=== PATIENT | female | born 1945 | race Caucasian/White ===

== ENCOUNTER 2017-04-24 15:57 | Inpatient (IN) | payer OTHER, MEDICARE ==
[2017-04-24] MEDS ORDERED: Ondansetron ODT 4 MG TAB SL PRN (20:29)
[2017-04-24] MEDS ORDERED: Ondansetron HCl/PF 4 MG/2 ML Vial IVP PRN (20:29)
[2017-04-24] MEDS ORDERED: Morphine 2 mg/2ml in 0.9% NaCl PF SYRINGE SLOW IVP PRN ×2 (20:31→22:46)
[2017-04-24] MEDS ORDERED: Morphine 4 MG/ML VIAL SLOW IVP PRN ×3 (20:33→22:37)
[2017-04-24] MEDS: Sodium Chloride 0.9% 1,000 ML IV SCH (20:49)
[2017-04-24] MEDS ORDERED: Meropenem 1 GM in Sodium Chloride 0.9% 100 ML IVPB SCH (21:00)
[2017-04-24] MEDS ORDERED: MEROPENEM 1 GM/50 ML 1 GM in Premix Bag 1 BAG IVPB SCH (21:00)
[2017-04-24] MEDS ORDERED: PROVENTIL INHALER 6.7 G (200 INHALATIONS) INH PRN (21:15)
[2017-04-24 21:40] VITALS: BMI 32.5
[2017-04-24] MEDS ORDERED: Piperacillin/Tazobactam 4.5 GM in Sodium Chloride 0.9% 100 ML IVPB SCH ×4 (23:59)
--- NOTE | 2017-04-25 00:05 | HP ---
CHIEF COMPLAINT: Abdominal pain. HISTORY OF PRESENT ILLNESS: Ms. Canales is a 71-year-old woman, who presented to the [place] ER w ith a 1-week history of lower abdominal pain, growing much worse for the past 24 hours. She was foun d to have diverticulitis with contained perforation and was transferred to [place] for further car e. She states that she started feeling sick about a week ago with some crampy abdominal pain in the mid abdomen. She went to her primary care doctor and was diagnosed with an upper respiratory infecti on and was started on cefdinir, but continued to have the abdominal pain off and on. About a week ag o, it moved into the lower abdomen and became a little more severe, but it was intermittent and arlet able, so she ignored that. On Tuesday, she had some loose bowel movements and the pain became more in tense and it steadily increased in severity over the weekend. Today, she decided to come into the em ergency room because the pain has become intolerable. She states that it was most severe pain she robertson s ever had and that it radiated across her lower abdomen and down into the anal area. She has not robertson d a bowel movement today, but is passing gas. She states that her stools have been loose and sort of mucousy, she has not noticed any blood. She has never had a colonoscopy, but she has an fecal occul t blood testing and that was negative last year. She has no personal or family history of GI maligna ncy and is otherwise fairly healthy except for asthma and hypertension. PAST MEDICAL HISTORY: Asthma and hypertension. She recently underwent cardiac evaluation by Dr. Urmila taylor including a stress test, which she states was normal. PAST SURGICAL HISTORY: Laparoscopic cholecystectomy many years ago and repair of an elbow laceration . She has also had an upper endoscopy in the past by Dr. Orellana for some reflux. OUTPATIENT MEDICATIONS: Include cefdinir 300 mg p.o. t.i.d., Bentyl 1 tablet p.o. q.i.d., naproxen 5 00 mg p.o. as needed, Protonix 40 mg p.o. daily, albuterol inhaler as needed, Symbicort 80/4.5 mg inh aler 1 puff b.i.d., Flexeril 10 mg p.o. at bedtime and losartan/hydrochlorothiazide 100/12.5 mg p.o. daily. ALLERGIES: The patient reports an unknown reaction to PENICILLIN when she was very young, but she robertson s tolerated amoxicillin and also Zosyn which was given in the emergency room. REVIEW OF SYSTEMS: Positive for intermittent diarrhea and constipation, longstanding. She did have a fever up to 101.8 in [place], but this has come down prior to her transfer. She has not had a ny nausea or vomiting. Review of systems is otherwise negative. FAMILY HISTORY: Negative for GI malignancy. SOCIAL HISTORY: The patient has a distant history of smoking, but quit over 20 years ago. She drink s alcohol rarely on a social basis and not to excess and denies any illicit drug use. PHYSICAL EXAMINATION: VITAL SIGNS: The patient is afebrile with temperature of 98.3, heart rate of 96, respirations 18, 97 % saturated on room air, blood pressure 124/74. GENERAL: Reveals a healthy appearing woman, in no acute distress. She is not flushed or toxic in ap pearance. She is not jaundiced or icteric. HEENT: Unremarkable. NECK: Supple, without lymphadenopathy or thyroid nodules. CARDIOVASCULAR: Her heart is regular in its rate and rhythm without murmurs, rubs or gallop. LUNGS: Clear to auscultation bilaterally. She does not have any pain with deep inspiration. ABDOMEN: Soft, slightly distended. She has mild tenderness to palpation in the lower abdomen, more than the upper abdomen, does not exhibit any rigidity, rebound or guarding. EXTREMITIES: Warm and well perfused without edema. NEUROLOGIC: No focal deficits. PSYCHIATRIC: Alert, oriented, and appropriate. LABORATORY DATA: Her white count is elevated at 16 with a left shift of 87% neutrophils. Hematocrit is normal at 43 and platelets are 240. Electrolytes are unremarkable. BUN is slightly elevated at 21 and creatinine is 0.67. UA did show few ketones. CT images from [place] are reviewed and I agree with the written report. The patient has fairly severe diverticulitis in the sigmoid colon wit h stranding and some extraluminal foci of gas in the mesentery of the sigmoid colon. There is no def inite abscess formation and no free perforation and this appears to be contained within the mesentery . ASSESSMENT AND PLAN: Diverticulitis. The patient's pain is much better after receiving IV antibioti cs and pain medication and she is not toxic in appearance. Her abdominal exam is reassuring and clin ically she is stable. We will proceed with a trial of medical treatment. If she responds to this, wade boyer will plan to get an outpatient colonoscopy in a couple of months. If her condition worsens then rosas torsten will need to be considered. The patient's diagnosis and recommended treatment were discussed w jaime her in detail and the plan of care reviewed. She is in agreement with this and we will continue her antibiotics as an inpatient. The ER doctor switched her from Zosyn to meropenem due to her previ ously stated allergy to PENICILLIN; however, I do not believe she is allergic to PENICILLIN since she has tolerated Zosyn previously in the [place] ER and also amoxicillin as an outpatient when she was treated for H. pylori a couple years ago. However, since she has already been switched to merop enem and recently received a dose, I will continue her on that antibiotic.
[2017-04-25] MEDS: Acetaminophen 1,000 MG in Premix Bag 1 BAG IVPB PRN ×3 (00:40→14:58)
[2017-04-25] MEDS: MEROPENEM 1 GM/50 ML 1 GM in Premix Bag 1 BAG IVPB SCH ×3 (04:54→20:09)
[2017-04-25] MEDS: Sodium Chloride 0.9% 1,000 ML IV SCH (04:56)
[2017-04-25] MEDS: Hydrochlorothiazide 25 MG TAB PO SCH (06:23)
[2017-04-25] MEDS: Losartan Potassium 25 MG TAB PO SCH (06:23)
[2017-04-25] MEDS: Mometasone/Formoterol 120 PUFF INHALER INH SCH ×2 (07:09→20:20)
[2017-04-25 10:52] LABS: #Eosinphils 0.1 thou/uL (0.0-0.7); #Lymphocytes 1.2 thou/uL (1.20-3.40); #Monocytes 1.2 thou/uL (0.11-0.59); #Neutrophils 12.5 thou/uL (1.40-6.50); %Basophils 0.2 % (0.0-1.0); %Eosinophils 0.4 % (0.0-10.0); %Lymphocytes 7.9 % (21.0-51.0); Hematocrit 39.6 % (36.0-47.0); Mean Platelet Volume 7.3 fL (7.4-10.4); Red Blood Cell (RBC) Count 4.28 mill/uL (4.20-5.40); White Blood Cell (WBC) Count 14.9 thou/uL (4.8-10.8)
[2017-04-25 11:14] LABS: Anion Gap 8 mmol/L (10-20); BUN (Urea Nitrogen) 15 mg/dL (9.8-20.1); Calc. Creatinine Clearance 110 mL/min (70-130); Calcium 8.8 mg/dL (7.8-10.44); Carbon Dioxide 26 mmol/L (23-31); Chloride 108 mmol/L (98-107); Estimated GFR-MDRD Greater than 90
[2017-04-25] MEDS: Ketorolac Tromethamine 30 MG/ML VIAL IVP PRN (14:58)
[2017-04-25] MEDS: Cyclobenzaprine 10 MG TAB PO SCH (20:09)
[2017-04-26] MEDS: Ketorolac Tromethamine 30 MG/ML VIAL IVP PRN ×2 (01:35→09:11)
[2017-04-26] MEDS: Acetaminophen 325 MG TAB PO PRN ×3 (04:57→23:46)
[2017-04-26] MEDS: MEROPENEM 1 GM/50 ML 1 GM in Premix Bag 1 BAG IVPB SCH ×2 (04:58→13:48)
[2017-04-26 06:10] LABS: #Eosinphils 0.2 thou/uL (0.0-0.7); #Lymphocytes 1.3 thou/uL (1.20-3.40); #Neutrophils 10.5 thou/uL (1.40-6.50); %Basophils 0.1 % (0.0-1.0); %Eosinophils 1.5 % (0.0-10.0); %Monocytes 7.6 % (0.0-10.0); Hematocrit 36.7 % (36.0-47.0); Mean Platelet Volume 7.8 fL (7.4-10.4); Red Blood Cell (RBC) Count 3.98 mill/uL (4.20-5.40)
[2017-04-26 06:21] LABS: Anion Gap 9 mmol/L (10-20); BUN (Urea Nitrogen) 13 mg/dL (9.8-20.1); Calc. Creatinine Clearance 103 mL/min (70-130); Calcium 8.7 mg/dL (7.8-10.44); Carbon Dioxide 27 mmol/L (23-31); Chloride 108 mmol/L (98-107); Estimated GFR-MDRD Greater than 90
[2017-04-26] MEDS: Mometasone/Formoterol 120 PUFF INHALER INH SCH ×2 (07:34→18:45)
[2017-04-26] MEDS: Hydrochlorothiazide 25 MG TAB PO SCH (12:25)
[2017-04-26] MEDS: Losartan Potassium 25 MG TAB PO SCH (12:25)
[2017-04-26] MEDS: metroNIDAZOLE 500 MG TAB PO SCH ×2 (17:40→23:44)
[2017-04-26] MEDS ORDERED: metroNIDAZOLE 500 MG in Premix Bag 1 BAG IVPB SCH (18:00)
[2017-04-26] MEDS ORDERED: Clopidogrel Bisulfate 75 MG TAB ONE (19:52)
[2017-04-26] MEDS: Cyclobenzaprine 10 MG TAB PO SCH (19:59)
[2017-04-26] MEDS ORDERED: Latanoprost 0.005% Ophth Soln 2.5 ml Bottle EA EYE SCH (21:00)
[2017-04-27] MEDS: metroNIDAZOLE 500 MG TAB PO SCH ×2 (05:00→12:16)
[2017-04-27] MEDS: Ketorolac Tromethamine 30 MG/ML VIAL IVP PRN (05:05)
[2017-04-27 05:41] LABS: #Eosinphils 0.3 thou/uL (0.0-0.7); #Lymphocytes 1.3 thou/uL (1.20-3.40); #Neutrophils 7.9 thou/uL (1.40-6.50); %Basophils 0.4 % (0.0-1.0); %Eosinophils 2.7 % (0.0-10.0); %Lymphocytes 12.6 % (21.0-51.0); %Monocytes 9.6 % (0.0-10.0); Hematocrit 38.3 % (36.0-47.0); Mean Platelet Volume 7.6 fL (7.4-10.4); Red Blood Cell (RBC) Count 4.15 mill/uL (4.20-5.40); White Blood Cell (WBC) Count 10.6 thou/uL (4.8-10.8)
[2017-04-27 05:51] LABS: Anion Gap 8 mmol/L (10-20); BUN (Urea Nitrogen) 9 mg/dL (9.8-20.1); Calc. Creatinine Clearance 97 mL/min (70-130); Calcium 9.1 mg/dL (7.8-10.44); Carbon Dioxide 33 mmol/L (23-31); Chloride 105 mmol/L (98-107); Estimated GFR-MDRD 85
[2017-04-27] MEDS: Losartan Potassium 25 MG TAB PO SCH (07:54)
[2017-04-27] MEDS: Hydrochlorothiazide 25 MG TAB PO SCH (07:55)
[2017-04-27] MEDS ORDERED: Potassium Chloride 20 MEQ TAB PO SCH (11:00)
[2017-04-27 12:33] VITALS: BP 134/74; TEMP 97.6
[2017-04-27] MEDS: Mometasone/Formoterol 120 PUFF INHALER INH SCH (13:56)
--- NOTE | 2017-04-27 17:15 | DIS ---
FINAL DIAGNOSES: 1. Diverticulitis. 2. Asthma. 3. Glaucoma. 4. Hypertension. HISTORY: Ms. Canales is a 71-year-old woman who presented to the emergency room with a 1-2 week histor y of abdominal pain. She was on some antibiotic for an upper respiratory infection, but the abdomina l pain became significantly worse over the weekend, so she ended up coming into the hospital. She robertson d been having some diarrhea and mucusy stools and the pain was localized to her lower abdomen. On CT , she was found to have diverticulitis with some small localized bubbles of gas in the fatty tissue s urrounding the inflamed portion of the colon, but no free perforation and no drainable abscess. She was admitted for IV antibiotics and had rapid improvement in her pain. She did not require any IV pa in medications after beginning her antibiotics and her abdominal tenderness also rapidly diminished. Her diet was able to be advanced and she was transitioned to p.o. antibiotics and continued to do we ll. At the time of discharge, her infection count had returned to normal. She had very slight tende rness to palpation in the suprapubic area. She was afebrile and having loose but not mucousy bowel m ovements. She is to continue on her oral medications for 10 days and to return [facility] in 2 weeks. If she has any increasing abdominal pain, fevers, nausea, or other problems, e is to return immediately.
== END 2017-04-27 13:39 | disposition home or self-care (01) | DRG 392 ==
LOC: ERS 15:57 → SURG A 17:00
PROVIDERS: ADMIT Surgery; ATTEND Surgery
DX: K57.32 Diverticulitis of large intestine without perforation or abscess without bleeding (principal); I10 Essential (primary) hypertension; J45.909 Unspecified asthma, uncomplicated; Z90.49 Acquired absence of other specified parts of digestive tract; Z87.891 Personal history of nicotine dependence; Z88.0 Allergy status to penicillin; H40.9 Unspecified glaucoma
CPT/HCPCS: 36415; 80048; 85025; 99285; J0131; J1885; J2185; J2270; J2405; J7050

== ENCOUNTER 2018-03-19 11:39 | Inpatient (IN) | payer OTHER, MEDICARE ==
[2018-03-19 12:32] LABS: #Eosinphils 0.1 thou/uL (0.0-0.7); #Lymphocytes 1.1 thou/uL (1.20-3.40); #Monocytes 0.9 thou/uL (0.11-0.59); #Neutrophils 12.3 thou/uL (1.40-6.50); %Basophils 0.2 % (0.0-1.0); %Eosinophils 0.9 % (0.0-10.0); %Lymphocytes 7.8 % (21.0-51.0); %Monocytes 6.1 % (0.0-10.0); Mean Corpuscular HGB CONC 32.3 g/dL (32.0-36.0); Mean Corpuscular Hemoglobin 29.1 pg (27.0-31.0); Mean Corpuscular Volume 90.1 fL (78.0-98.0); Mean Platelet Volume 7.8 fL (7.4-10.4); Platelet Count 313 thou/uL (130-400); RBC Distribution Width 12.3 % (11.5-14.5); Red Blood Cell (RBC) Count 5.17 mill/uL (4.20-5.40); White Blood Cell (WBC) Count 14.5 thou/uL (4.8-10.8)
[2018-03-19 12:45] LABS: ALT (SGPT) 18 U/L (8-55); AST (SGOT) 18 U/L (5-34); Albumin 4.2 g/dL (3.4-4.8); Alkaline Phosphatase 86 U/L (40-150); Anion Gap 13 mmol/L (10-20); BUN (Urea Nitrogen) 20 mg/dL (9.8-20.1); Bilirubin, Total 0.7 mg/dL (0.2-1.2); Calc. Creatinine Clearance 0 mL/min (70-130); Calcium 9.6 mg/dL (7.8-10.44); Carbon Dioxide 28 mmol/L (23-31); Chloride 102 mmol/L (98-107); Estimated GFR-MDRD 75; Glucose 109 mg/dL (83-110); Lipase 13 U/L (8-78); Potassium 3.4 mmol/L (3.5-5.1); Protein, Total 7.2 g/dL (6.0-8.3); Sodium 140 mmol/L (136-145)
[2018-03-19 13:00] LABS: Bilirubin Small (Negative); Blood, Urine Negative (Negative); Clarity CLOUDY (Clear); Glucose, Urine (Dipstick) Negative (Negative); Leukocyte Small (Negative); Nitrite Negative (Negative); Protein, Urine (Dipstick) Trace mg/dL (Neg-Trace); Specific Gravity, Urine 1.024 (1.002-1.036); Urobilinogen 0.2 mg/dL (0.2-1.0); pH, Urine 5.5 (5.0-9.0)
[2018-03-19] MEDS ORDERED: MEROPENEM 1 GM/50 ML 1 GM in Premix Bag 1 BAG IVPB SCH (13:00)
[2018-03-19 13:04] LABS: Bacteria/HPF None Seen HPF (None Seen); Pathc Cast-AUWi Flag 2.03 (0-2.49); Squamous Epithelial 0-3 HPF (0-3)
[2018-03-19 13:20] LABS: Hyaline Casts/LPF 0-3 HYALINE CAST LPF (0-3 Hyaline)
[2018-03-19] MEDS ORDERED: Ondansetron PF 4 MG/2 ML Vial ONE (13:20)
[2018-03-19] MEDS ORDERED: Morphine 2 MG/ML SYRINGE ONE ×3 (13:20→14:06)
[2018-03-19] MEDS ORDERED: Iopamidol 370 76% 100 ML VIAL ONE (14:26)
--- NOTE | 2018-03-19 14:39 | CT ---
CT OF ABDOMEN AND PELVIS PERFORMED WITH CONTRAST ENHANCEMENT:' HISTORY: Abdominal pain beginning approximately 3 week ago which was felt to be diverticulitis for which the p atient was given antibiotics. The pain had resolved but not has left-sided abdomen pain again. COMPARISON: A 04/24/2017 study. FINDINGS: The lung bases clear. The liver, spleen, and pancreas regions appear unremarkable. The gallbladder has been removed. Right and left adrenal glands and right and left kidneys are normal in size. There is no significant periaortic or mesenteric lymphadenopathy. There is what is probably a small splenule anterior to th e spleen. There is evidence of bowel wall thickening involving the ileum with some minimal fluid wit hin the ileal bowel loops associated with this and some free fluid seen in the pelvis and also some e bryon change seen within the mesenteric fat. This extends to the terminal ileum. There is some fluid within the cecum, but no obvious signs that would suggest a colitis. CT OF PELVIS PEFORMED WITH CONTRAST ENHANCEMENT: Sigmoid diverticulosis was seen without any inflammatory change. IMPRESSION: 1. Small bowel wall thickening and edema with some fluid seen in the mesenteric fat and free fluid s een in the pelvis. These changes could represent a severe ileus, but the possibility of bowel wall i schemic should be considered. I do see a patent superior mesenteric and celiac artery and do not see any definite evidence that would suggest vascular compromise. An inferior mesenteric artery is not identified. 2. Diverticulosis of the sigmoid colon without inflammatory change. 2. These findings were telephoned to Dr. Woodson. POS: [facility]
[2018-03-19] MEDS ORDERED: Acetaminophen 650 MG Suppository PR PRN (15:25)
--- NOTE | 2018-03-19 16:11 | HP ---
PRIMARY CARE PROVIDER: Jarocho Katz M.D. CHIEF COMPLAINT: Abdominal pain. HISTORY OF PRESENT ILLNESS: Ms. Canales is a pleasant 72-year-old lady, who was seen at [facility] on 03/19/2018. She reports that she had abdominal pain. This was preceded by 3 days of diarrhea. She describes the pain as cramping sensation across her upper abdomen. She was se en by her primary care provider and was treated with ciprofloxacin and Flagyl for 10 days. The diarr hea resolved. Last night, she had pain across upper abdomen, then across the lower abdomen. She donald cribes it as sharp, 10/10 at its worst, accompanied by nausea, but not by vomiting, accompanied by lo ose stools. She denies any fevers or chills. REVIEW OF SYSTEMS: All other systems reviewed and found to be negative. PAST MEDICAL HISTORY: Hypertension, gastroesophageal reflux disease, and asthma. PAST SURGICAL HISTORY: Cholecystectomy and right elbow surgery. PSYCHIATRIC HISTORY: Anxiety. SOCIAL HISTORY: Occasional alcohol use, no tobacco use or recreational drug use. FAMILY HISTORY: No family history of coronary artery disease. ALLERGIES: PENICILLIN. CURRENT MEDICATIONS: Latanoprost eyedrops 1 drop to each eye daily, losartan/hydrochlorothiazide 100 /12.5 mg daily, and pantoprazole 40 mg daily. PHYSICAL EXAMINATION: GENERAL: On examination, Ms. Canales is awake and alert, not in acute distress. VITAL SIGNS: Blood pressure is 144/72, pulse 87, respiratory rate 16 and oxygen saturation 99% on ro om air. She is afebrile. EYES: No scleral icterus. No conjunctival pallor. ENT: Moist mucosal membranes, no oropharyngeal erythema or exudates. NECK: Supple, nontender, trachea is midline. RESPIRATORY: Accessory muscles of breathing are not active. Chest wall movements are symmetric bila terally. LUNGS: Clear to auscultation without wheeze, rhonchi or crepitations. ABDOMEN: Soft, nontender, bowel sounds are heard, no hepatomegaly, no splenomegaly. NEUROLOGIC: Cranial nerves II-XII intact. Deep tendon reflexes are 2+. MUSCULOSKELETAL: Power is 5/5 in all 4 extremities. SKIN: No rashes or subcutaneous nodules. LYMPHATIC: No cervical lymphadenopathy. PSYCHIATRIC: Normal mood, normal affect, patient is oriented to person, place, and time. LABORATORY DATA AND IMAGING DATA: Ms. Canales's labs and investigations were reviewed. She has leukoc ytosis with 14,500 white cells, of which 85% are neutrophils, normal hemoglobin, normal platelet coun t, decreased potassium of 3.4, otherwise unremarkable comprehensive metabolic profile, normal lipase, normal lactic acid and urinalysis positive for small amount of leukocyte esterase and bilirubin. Sh e also had CT scan of the abdomen and pelvis, which showed sigmoid diverticulosis without any inflamm atory change. She also had small bowel wall thickening and edema with some fluid seen in the mesente rolando fat and free fluid seen in the pelvis, representing severe ileus or possibly bowel wall ischemia. ASSESSMENT AND PLAN: Ms. Canales is a pleasant 72-year-old lady, who was seen at [facility] on 03/19/2018. Her problem list includes: 1. Abdominal pain: Could be secondary to ileus or bowel wall ischemia. The patient has been starte d on meropenem by emergency room physician, which I will continue for now. We will send off stool st udies for evidence of infection as well as any evidence of Clostridium difficile toxin, given her rec ent antibiotic therapy. 2. Hypertension: Appears to be stable. We will monitor vital signs and titrate antihypertensives a s needed. 3. Asthma: Stable. Gastroenterology Service is being consulted for opinion and help with management. Many thanks for allowing me to participate in your patient's care. Please feel free to contact me wi th any questions or concerns. LEVEL OF RISK: Moderate. LEVEL OF COMPLEXITY: Moderate.
[2018-03-19 16:25] VITALS: BMI 32.8
[2018-03-19] MEDS: NS 0.9% w/ 20 MEQ KCL 1,000 ML/1,000 ML BAG IV SCH (17:49)
[2018-03-19] MEDS ORDERED: PROVENTIL INHALER 6.7 G (200 INHALATIONS) INH PRN (18:54)
[2018-03-19] MEDS ORDERED: hydrALAZINE 20 MG/ML VIAL SLOW IVP PRN (18:55)
--- NOTE | 2018-03-19 19:32 | CON ---
DATE OF CONSULTATION: 03/19/2018 GI INPATIENT CONSULTATION NOTE REQUESTING PHYSICIAN: Dr. Dean. REASON FOR CONSULTATION: Abdominal pain and ileitis. HISTORY OF PRESENT ILLNESS: Sylvia Canales is a very pleasant 72-year-old woman. She was seen in past by my GI colleague, Dr. Lebron Orellana. She has a history of gastroesophageal reflux which is pablito rly well controlled on Protonix which she has been on for years. She had an EGD back in 2006, which showed a stricture in the upper esophagus dilated to 15 mm with good results. She has never had a co lonoscopy. She has no chronic gastrointestinal symptoms. Back in 04/2007, she had an episode of com plicated sigmoid diverticulitis with a microperforation. This was treated conservatively and nonoper atively with antibiotics and she did well with this and eventually recovered completely. She did wel l for most of this year. About 3 weeks ago, she had the onset of some pretty severe diarrhea and left-sided abdominal pain. S he saw her primary care provider and was treated with ciprofloxacin and Flagyl for 10 days, empirical ly for suspected recurrent diverticulitis. She finished that up about a week ago. She says that sym ptoms did seem to improve while on the antibiotics. She did well for most of this week. Then last n ight, she started having right-sided abdominal pain again. This was initially in the left lower quad rant and then radiated down to the lower abdomen, but now has become more generalized and worsening t his morning which prompted her presentation. She had four loose bowel movements this morning, which were nonbloody. She has been slightly nauseated, but not had any vomiting. Upon evaluation in the e mergency department, she was found to have a leukocytosis with WBC 14.5. Normal lipase and liver serg ts. CT of the abdomen and pelvis demonstrated thickening in the ileum with associated mesenteric khushboo ma and a small amount of fluid in the pelvis but no evidence of diverticulitis. She is admitted for further evaluation. She received meropenem in the emergency room and that is going to be continued. Stool studies have been ordered, but she has not had a bowel movement yet since arrival to the floor , so these have not been collected. There is no fever, really no other symptoms today. REVIEW OF SYSTEMS: Full review of systems including constitutional, head, eyes, ears, nose, throat, GI, , cardiovascular, respiratory, musculoskeletal, and neurologic systems is negative except as no marshall in the HPI. PAST MEDICAL HISTORY: 1. Upper esophageal stricture, dilated to [address] Orellana in 2006. 2. Gastroesophageal reflux disease, controlled on Protonix. 3. Hypertension. 4. Anxiety. 5. Asthma. 6. Cholecystectomy. 7. Elbow surgery. ALLERGIES: PENICILLIN. OUTPATIENT MEDICATIONS: Protonix 40 mg daily and losartan/hydrochlorothiazide. FAMILY HISTORY: Noncontributory. There is no known family history of gastrointestinal illness or ma lignancy. SOCIAL HISTORY: No smoking, no drug use. Occasional alcohol use. PHYSICAL EXAMINATION: VITAL SIGNS: Temperature 97.8, pulse 83, blood pressure 133/76, 94% oxygen saturation on room air. GENERAL: A 72-year-old woman lying in bed comfortably in no distress. SKIN: No jaundice, no rash visible or palpable. EYES: No scleral icterus. Extraocular movements intact. ENT: Mucous membranes moist, no oral lesions. LYMPH: No submandibular or supraclavicular lymphadenopathy. THYROID: Nontender to palpation. HEART: Regular rate and rhythm. LUNGS: Clear to auscultation bilaterally. ABDOMEN: Nondistended. Bowel sounds are present. The abdomen is soft, but tender to palpation in t he left upper and lower quadrants and periumbilical area. No guarding, rebound tenderness. EXTREMITIES: No peripheral edema. VESSELS: Radial pulses 2+ bilaterally. NEUROLOGICAL: Cranial nerves II-XII intact bilaterally. No focal deficits. LABORATORY STUDIES: WBC 14.5, hemoglobin 15.0, platelets 313, BUN 20, creatinine 0.76. Lactic acid 1.5, lipase 13, total bilirubin 0.7, alkaline phosphatase 86, AST 18, ALT 18, albumin 4.2. Stool prosper dies have been ordered, but not yet collected. IMAGING STUDIES: CT of the abdomen and pelvis demonstrates sigmoid diverticulosis, but no evidence o f diverticulitis. There is thickening in the ileum extending to the terminal ileum with associated m esenteric edema and small amount of free fluid in the pelvis. ASSESSMENT AND PLAN: 1. Ileitis, nonspecific. 2. Generalized abdominal pain. 3. Acute diarrhea. It is unclear whether the patient's current symptoms are related to the same pro cess that she was treated for 3 weeks ago. Certainly there is no evidence of recurrent diverticuliti s at this time, but rather inflammation in the ileum. Consider infectious versus inflammatory ileiti s. At this point, I would await stool study results, particularly need to exclude Campylobacter or C . difficile. Follow up stool study results tomorrow. If stool studies are unrevealing and symptoms persist, then the patient is going to need a diagnostic colonoscopy. I would have the patient on a c lear liquid diet tomorrow. Thank you for the consultation. Please call any time with questions or concerns.
[2018-03-19] MEDS: Latanoprost 0.005% Ophth Soln 2.5 ml Bottle EA EYE SCH (20:27)
[2018-03-19] MEDS ORDERED: Non-Formulary Item 1 EACH (Budesonide-Formoterol [Symbicort 80-4.5] 1 PUFF) INH SCH (21:00)
[2018-03-19] MEDS: MEROPENEM 1 GM/50 ML 1 GM in Premix Bag 1 BAG IVPB SCH (22:12)
[2018-03-19] MEDS: Acetaminophen 325 MG TAB PO PRN (22:20)
[2018-03-19] MEDS: Morphine 2 MG/ML SYRINGE SLOW IVP PRN (22:21)
[2018-03-19] MEDS ORDERED: Ondansetron ODT 4 MG TAB PO PRN (22:29)
[2018-03-20] MEDS ORDERED: diphenhydrAMINE 25 MG CAP PO PRN (04:59)
[2018-03-20 05:14] LABS: #Eosinphils 0.5 thou/uL (0.0-0.7); #Lymphocytes 1.4 thou/uL (1.20-3.40); #Monocytes 0.8 thou/uL (0.11-0.59); #Neutrophils 6.7 thou/uL (1.40-6.50); %Basophils 0.3 % (0.0-1.0); %Eosinophils 5.8 % (0.0-10.0); %Lymphocytes 14.9 % (21.0-51.0); %Monocytes 8.4 % (0.0-10.0); %Neutrophils 70.7 % (42.0-75.0); Hemoglobin 12.8 g/dL (12.0-16.0); Mean Corpuscular HGB CONC 31.2 g/dL (32.0-36.0); Mean Corpuscular Hemoglobin 28.4 pg (27.0-31.0); Mean Corpuscular Volume 90.9 fL (78.0-98.0); Mean Platelet Volume 8.2 fL (7.4-10.4); Platelet Count 272 thou/uL (130-400); RBC Distribution Width 12.2 % (11.5-14.5); Red Blood Cell (RBC) Count 4.51 mill/uL (4.20-5.40); White Blood Cell (WBC) Count 9.4 thou/uL (4.8-10.8)
[2018-03-20 05:23] LABS: Anion Gap 6 mmol/L (10-20); BUN (Urea Nitrogen) 16 mg/dL (9.8-20.1); Calc. Creatinine Clearance 99 mL/min (70-130); Calcium 8.7 mg/dL (7.8-10.44); Carbon Dioxide 31 mmol/L (23-31); Chloride 107 mmol/L (98-107); Estimated GFR-MDRD 88; Glucose 96 mg/dL (83-110); Sodium 140 mmol/L (136-145)
[2018-03-20] MEDS: MEROPENEM 1 GM/50 ML 1 GM in Premix Bag 1 BAG IVPB SCH ×3 (05:23→20:59)
[2018-03-20] MEDS: NS 0.9% w/ 20 MEQ KCL 1,000 ML/1,000 ML BAG IV SCH ×2 (05:23→20:52)
[2018-03-20] MEDS: Mometasone/Formoterol 120 PUFF INHALER INH SCH ×2 (06:16→20:07)
[2018-03-20] MEDS ORDERED: HYDROCHLOROTHIAZIDE PO SCH (07:30)
[2018-03-20] MEDS ORDERED: LOSARTAN PO SCH (07:30)
[2018-03-20] MEDS: Losartan 25 MG TAB PO SCH (08:07)
[2018-03-20] MEDS: Acetaminophen 325 MG TAB PO PRN ×2 (08:07→21:08)
[2018-03-20] MEDS: Hydrochlorothiazide 25 MG TAB PO SCH (08:08)
[2018-03-20] MEDS: Ondansetron PF 4 MG/2 ML Vial IVP PRN (12:22)
[2018-03-20] MEDS: Morphine 2 MG/ML SYRINGE SLOW IVP PRN (12:22)
--- NOTE | 2018-03-20 14:00 | PRG ---
DATE OF SERVICE: 03/20/2018 SUBJECTIVE: The patient reports having intermittent, diffuse abdominal cramps, at times intense. Th ere is no nausea or vomiting. She still has loose to watery diarrhea without blood or mucus, so far 3 episodes within the last 10 hours. She is tolerating liquids. PHYSICAL EXAMINATION: VITAL SIGNS: Temperature is 98.3, blood pressure 125/75, pulse of 73. GENERAL: She is alert, conversant, in no distress. HEENT: Shows anicteric sclerae. Oropharynx clear. NECK: Supple. HEART: Normal S1, S2 regular rate and rhythm. CHEST: Normal breath sounds. ABDOMEN: Mildly distended with some tympany. There is tenderness in the periumbilical area, but no guarding, tension or rebound. She does have active bowel sounds. EXTREMITIES: Shows no edema. LABORATORY DATA: WBC is 9.4, hemoglobin 12.8, platelet count of 272. Electrolytes within normal ran ge, creatinine 0.66, BUN of 16. Stool for Campylobacter and E. coli, toxin negative and stool C. diff negative, culture pending. ASSESSMENT: A 3-week history of diarrhea without blood or mucus associated with abdominal pain. CT showed possible ileitis. Thus far, stool studies have been negative. She does not appear toxic, wit hout fever and leukocytosis is resolving. Etiology is unknown at this point. Likely infectious vers us inflammatory process. RECOMMENDATIONS: 1. Proceed with a colonoscopy given negative stool studies so far. 2. Indication including risks of this procedure are discussed with patient, all questions answered.
--- NOTE | 2018-03-20 15:13 | PDOC.PN ---
- Subjective Encounter Start Date: 03/20/18 Encounter Start Time: 10:40 Pt seen for followup re: diarrhea. Reports having two loose stools today AM. Feels better. - Objective Resuscitation Status: Resuscitation Status FULL:Full Resuscitation MAR Reviewed: Yes Vital Signs & Weight: Vital Signs (12 hours) Temp Pulse Resp BP Pulse Ox 03/20/18 11:46 98.3 F 73 18 125/75 96 03/20/18 08:00 98 03/20/18 07:37 97.6 F 70 20 125/75 98 03/20/18 04:07 98.1 F 78 18 116/71 95 Weight Weight 179 lb 6.4 oz I&O: 03/19/18 03/20/18 03/21/18 06:59 06:59 06:59 Intake Total 1645 Balance 1645 Result Diagrams: 03/20/18 03:53 03/20/18 03:53 Additional Labs: Labs reviewed by me Phys Exam - Physical Examination Constitutional: NAD HEENT: moist MMs, sclera anicteric, oral pharynx no lesions, 2+ tonsils Neck: no nodes, no JVD, supple, full ROM Respiratory: no wheezing, no rales, no rhonchi, clear to auscultation bilateral Cardiovascular: RRR, no rub S1, S2 Gastrointestinal: soft, positive bowel sounds Mild tenderness mid-abdomen, no guarding or rigidity Neurological: moves all 4 limbs Psychiatric: normal affect, A&O x 3 Dx/Plan (1) Diarrhea Code(s): R19.7 - DIARRHEA, UNSPECIFIED Status: Acute Comment: infection ruled out, pt to have endoscopy study (2) Ileitis Code(s): K52.9 - NONINFECTIVE GASTROENTERITIS AND COLITIS, UNSPECIFIED Status : Acute Comment: continue antibiotics, stool studies negative (3) HTN (hypertension) Code(s): I10 - ESSENTIAL (PRIMARY) HYPERTENSION Status: Chronic Comment: controlled (4) GERD (gastroesophageal reflux disease) Code(s): K21.9 - GASTRO-ESOPHAGEAL REFLUX DISEASE WITHOUT ESOPHAGITIS Status: Chronic Comment: stable (5) Asthma Code(s): J45.909 - UNSPECIFIED ASTHMA, UNCOMPLICATED Status: Chronic Comment : stable, continue bronchodilators - Plan * . Review of Systems - Review of Systems Constitutional: negative: fever, chills, sweats, weakness, malaise Respiratory: negative: Cough, Shortness of Breath, SOB with Excertion, Pleuritic Pain, Wheezing Cardiovascular: negative: chest pain, palpitations, orthopnea, paroxysmal nocturnal dyspnea, edema, light headedness Gastrointestinal: Diarrhea. negative: Nausea, Vomiting, Abdominal Pain, Constipation, Melena, Hematochezia Genitourinary: negative: Dysuria, Frequency, Incontinence, Hematuria, Retention Skin: negative: Rash, Lesions, Donte, Bruising - Medications/Allergies Allergies/Adverse Reactions: Allergies Allergy/AdvReac Type Severity Reaction Status Date / Time Penicillins Allergy Verified 09/15/14 02:17 Medications: Current Medications Acetaminophen (Tylenol) 650 mg PO Q4H PRN PRN Reason: Headache/Fever/Mild Pain (1-3) Last Admin: 03/20/18 08:07 Dose: 650 mg Acetaminophen (Tylenol) 650 mg IN Q4H PRN PRN Reason: Headache/Fever/Mild Pain (1-3) Albuterol Sulfate (Proventil Hfa) 2 puff INH Q6H PRN PRN Reason: SOB &/or Wheezing Diphenhydramine HCl (Benadryl) 25 mg PO Q6H PRN PRN Reason: Itching & Insomnia Last Admin: 03/20/18 05:21 Dose: 25 mg Hydralazine HCl (Apresoline) 10 mg SLOW IVP Q6H PRN PRN Reason: SBP Greater Than 170 Hydrochlorothiazide (Hydrochlorothiazide) 12.5 mg PO DAILY-[facility] Last Admin: 03/20/18 08:08 Dose: 12.5 mg Meropenem 1 gm/ Device 50 mls @ 200 mls/hr IVPB Q8HR [facility] Last Admin: 03/20/18 13:57 Dose: 50 mls Potassium Chloride/Sodium Chloride (Ns 0.9% W/ 20 Meq Kcl) 1,000 ml in 1,000 mls @ 75 mls/hr IV .[id number] [facility] Last Admin: 03/20/18 05:23 Dose: 1,000 mls Latanoprost (Xalatan 0.005% Ophth Soln) 1 drop EA EYE HS [facility] Last Admin: 03/19/18 20:27 Dose: 1 drop Losartan Potassium (Cozaar) 100 mg PO DAILY-[facility] Last Admin: 03/20/18 08:07 Dose: 100 mg Mometasone Furoate/Formoterol Fumar (Dulera 100 Mcg/5 Mcg Inhaler) 2 puff INH BID-RT [facility] Last Admin: 03/20/18 06:16 Dose: 2 puff Morphine Sulfate (Morphine) 2 mg SLOW IVP Q6H PRN PRN Reason: Moderate to Severe Pain (6-10) Last Admin: 03/20/18 12:22 Dose: 2 mg Ondansetron HCl (Zofran Odt) 4 mg PO Q6H PRN PRN Reason: Nausea/Vomiting Ondansetron HCl (Zofran) 4 mg IVP Q6H PRN PRN Reason: Nausea/Vomiting Last Admin: 03/20/18 12:22 Dose: 4 mg Pantoprazole Sodium (Protonix) 40 mg PO DAILY-AC [facility] Last Admin: 03/20/18 08:07 Dose: 40 mg Sodium Chloride (Flush - Normal Saline) 10 ml IVF Q12HR [facility] Last Admin: 03/20/18 08:10 Dose: Not Given Sodium Chloride (Flush - Normal Saline) 10 ml IVF PRN PRN PRN Reason: Saline Flush
[2018-03-20] MEDS: Latanoprost 0.005% Ophth Soln 2.5 ml Bottle EA EYE SCH (20:52)
[2018-03-21 04:58] LABS: #Eosinphils 0.7 thou/uL (0.0-0.7); #Lymphocytes 1.8 thou/uL (1.20-3.40); #Monocytes 0.7 thou/uL (0.11-0.59); #Neutrophils 5.3 thou/uL (1.40-6.50); %Basophils 0.5 % (0.0-1.0); %Eosinophils 8.3 % (0.0-10.0); %Lymphocytes 20.7 % (21.0-51.0); %Monocytes 8.2 % (0.0-10.0); %Neutrophils 62.3 % (42.0-75.0); Hemoglobin 12.8 g/dL (12.0-16.0); Mean Corpuscular HGB CONC 31.9 g/dL (32.0-36.0); Mean Corpuscular Volume 90.8 fL (78.0-98.0); Mean Platelet Volume 8.2 fL (7.4-10.4); Platelet Count 267 thou/uL (130-400); RBC Distribution Width 12.1 % (11.5-14.5); Red Blood Cell (RBC) Count 4.43 mill/uL (4.20-5.40); White Blood Cell (WBC) Count 8.6 thou/uL (4.8-10.8)
[2018-03-21 05:10] LABS: Anion Gap 7 mmol/L (10-20); BUN (Urea Nitrogen) 8 mg/dL (9.8-20.1); Calc. Creatinine Clearance 105 mL/min (70-130); Calcium 8.8 mg/dL (7.8-10.44); Carbon Dioxide 32 mmol/L (23-31); Chloride 107 mmol/L (98-107); Estimated GFR-MDRD Greater than 90; Glucose 91 mg/dL (83-110); Potassium 3.7 mmol/L (3.5-5.1); Sodium 142 mmol/L (136-145)
[2018-03-21] MEDS: MEROPENEM 1 GM/50 ML 1 GM in Premix Bag 1 BAG IVPB SCH ×3 (05:41→21:05)
[2018-03-21] MEDS: Mometasone/Formoterol 120 PUFF INHALER INH SCH ×2 (06:09→18:30)
[2018-03-21] MEDS: Hydrochlorothiazide 25 MG TAB PO SCH (09:10)
[2018-03-21] MEDS: Losartan 25 MG TAB PO SCH (09:15)
[2018-03-21] MEDS: NS 0.9% w/ 20 MEQ KCL 1,000 ML/1,000 ML BAG IV SCH ×2 (09:24→21:14)
[2018-03-21] MEDS: Morphine 2 MG/ML SYRINGE SLOW IVP PRN (13:30)
[2018-03-21] MEDS: Ondansetron PF 4 MG/2 ML Vial IVP PRN (13:31)
--- NOTE | 2018-03-21 14:09 | PDOC.PN ---
- Subjective Encounter Start Date: 03/21/18 Encounter Start Time: 07:20 Pt seen for followup re: diarrhea. Reports ongoing diarrhea. no nausea or vomiting. No fevers. - Objective Resuscitation Status: Resuscitation Status FULL:Full Resuscitation MAR Reviewed: Yes Vital Signs & Weight: Vital Signs (12 hours) Temp Pulse Resp BP Pulse Ox 03/21/18 08:00 96 03/21/18 07:49 97.8 F 72 14 152/80 H 96 03/21/18 04:00 98.4 F 80 20 132/80 97 Weight Weight 179 lb 6.4 oz I&O: 03/20/18 03/21/18 03/22/18 06:59 06:59 06:59 Intake Total 1645 1405 Balance 1645 1405 Result Diagrams: 03/21/18 03:47 03/21/18 03:47 Additional Labs: Labs reviewed by me Phys Exam - Physical Examination Obese HEENT: moist MMs Neck: supple Respiratory: clear to auscultation bilateral Cardiovascular: RRR Gastrointestinal: soft Neurological: moves all 4 limbs Psychiatric: normal affect Dx/Plan (1) Diarrhea Code(s): R19.7 - DIARRHEA, UNSPECIFIED Status: Acute Comment: patient to have colonoscopy, no evidence of infection (2) Ileitis Code(s): K52.9 - NONINFECTIVE GASTROENTERITIS AND COLITIS, UNSPECIFIED Status : Acute Comment: stool studies negative; will continue antibiotics for now (3) HTN (hypertension) Code(s): I10 - ESSENTIAL (PRIMARY) HYPERTENSION Status: Chronic Comment: controlled (4) GERD (gastroesophageal reflux disease) Code(s): K21.9 - GASTRO-ESOPHAGEAL REFLUX DISEASE WITHOUT ESOPHAGITIS Status: Chronic Comment: stable (5) Asthma Code(s): J45.909 - UNSPECIFIED ASTHMA, UNCOMPLICATED Status: Chronic Comment : stable - Plan * . Review of Systems - Review of Systems Cardiovascular: negative: chest pain, palpitations, orthopnea, paroxysmal nocturnal dyspnea, edema, light headedness Gastrointestinal: Diarrhea. negative: Nausea, Vomiting, Abdominal Pain, Constipation, Melena, Hematochezia - Medications/Allergies Allergies/Adverse Reactions: Allergies Allergy/AdvReac Type Severity Reaction Status Date / Time Penicillins Allergy Verified 09/15/14 02:17 Medications: Current Medications Acetaminophen (Tylenol) 650 mg PO Q4H PRN PRN Reason: Headache/Fever/Mild Pain (1-3) Last Admin: 03/20/18 21:08 Dose: 650 mg Acetaminophen (Tylenol) 650 mg FL Q4H PRN PRN Reason: Headache/Fever/Mild Pain (1-3) Albuterol Sulfate (Proventil Hfa) 2 puff INH Q6H PRN PRN Reason: SOB &/or Wheezing Diphenhydramine HCl (Benadryl) 25 mg PO Q6H PRN PRN Reason: Itching & Insomnia Last Admin: 03/20/18 05:21 Dose: 25 mg Hydralazine HCl (Apresoline) 10 mg SLOW IVP Q6H PRN PRN Reason: SBP Greater Than 170 Hydrochlorothiazide (Hydrochlorothiazide) 12.5 mg PO DAILY-AC [facility] Last Admin: 03/21/18 09:10 Dose: 12.5 mg Meropenem 1 gm/ Device 50 mls @ 200 mls/hr IVPB Q8HR [facility] Last Admin: 03/21/18 13:07 Dose: 50 mls Potassium Chloride/Sodium Chloride (Ns 0.9% W/ 20 Meq Kcl) 1,000 ml in 1,000 mls @ 75 mls/hr IV .[id number] [facility] Last Admin: 03/21/18 09:24 Dose: 1,000 mls Latanoprost (Xalatan 0.005% [facility]) 1 drop EA EYE HS [facility] Last Admin: 03/20/18 20:52 Dose: 1 drop Losartan Potassium (Cozaar) 100 mg PO DAILY-AC [facility] Last Admin: 03/21/18 09:15 Dose: 100 mg Mometasone Furoate/Formoterol Fumar (Dulera 100 Mcg/5 Mcg Inhaler) 2 puff INH BID-RT [facility] Last Admin: 03/21/18 06:09 Dose: 2 puff Morphine Sulfate (Morphine) 2 mg SLOW IVP Q6H PRN PRN Reason: Moderate to Severe Pain (6-10) Last Admin: 03/21/18 13:30 Dose: 2 mg Ondansetron HCl (Zofran Odt) 4 mg PO Q6H PRN PRN Reason: Nausea/Vomiting Ondansetron HCl (Zofran) 4 mg IVP Q6H PRN PRN Reason: Nausea/Vomiting Last Admin: 03/21/18 13:31 Dose: 4 mg Pantoprazole Sodium (Protonix) 40 mg PO DAILY-AC [facility] Last Admin: 03/21/18 09:17 Dose: 40 mg Polyethylene Glycol/Electrolytes (Golytely) 4,000 ml PO 1500 ARIEL Stop: 03/21/18 21:00 Sodium Chloride (Flush - Normal Saline) 10 ml IVF Q12HR [facility] Last Admin: 03/21/18 09:17 Dose: Not Given Sodium Chloride (Flush - Normal Saline) 10 ml IVF PRN PRN PRN Reason: Saline Flush
[2018-03-21] MEDS ORDERED: GoLYTELY 4,000 ml Bottle PO SCH (15:00)
[2018-03-21] MEDS: Nystatin Powder 15 GM BOT TOP PRN (16:46)
[2018-03-21] MEDS: Latanoprost 0.005% Ophth Soln 2.5 ml Bottle EA EYE SCH (21:05)
[2018-03-21] MEDS: Acetaminophen 325 MG TAB PO PRN (21:05)
--- NOTE | 2018-03-21 22:08 | PRG ---
DATE OF SERVICE: 03/21/2018 SUBJECTIVE: Ms. Canales was seen in followup from hospitalization. She states that she is doing a bow el prep now. Unfortunately, bowel prep was not given last night. She did not want to do a bowel pre p early this morning for colonoscopy today. Overall, she is feeling a bit better. HOME MEDICATIONS: Tylenol, Cozaar, meropenem, Dulera, morphine p.r.n., Zofran p.r.n., Protonix . PHYSICAL EXAMINATION: GENERAL: She is resting comfortably in bed. VITAL SIGNS: Temperature is 97.8, pulse 72, blood pressure 150/80. LUNGS: Clear. CARDIAC: Heart regular without clicks or murmurs. ABDOMEN: Soft and nontender. LABORATORY STUDIES: White count is 8.6, hemoglobin is 12.8, platelet count 267,000. A basic metabol ic profile is normal. MICROBIOLOGY: Stool culture, normal traci is a preliminary, nothing else is back. ASSESSMENT: CT scan with some findings of ileitis. She was treated empirically with antibiotics a f ew weeks ago for acute gastrointestinal symptoms of nausea, vomiting, diarrhea and cramping, but then symptoms returned. She has got this finding on CT. It is unclear if this is infectious or related to inflammatory bowel disease. Her symptoms have been pretty acute though over the last several week s. Diverticulosis without any inflammatory changes. PLAN: It has been a long time she has had a colonoscopy, it has been over 10 years, we are going to proceed with that tomorrow to rule out a chronic inflammatory bowel disease, although clinically this seems to be more of an acute infectious enteritis. At this point in time, cultures, however, have b een negative including stool for C. diff, Campylobacter. At times, Yersinia enterocolitica can prese nt this way. Final cultures are pending.
[2018-03-22 05:03] LABS: #Eosinphils 0.6 thou/uL (0.0-0.7); #Lymphocytes 1.5 thou/uL (1.20-3.40); #Monocytes 0.6 thou/uL (0.11-0.59); %Basophils 0.5 % (0.0-1.0); %Eosinophils 8.3 % (0.0-10.0); %Lymphocytes 22.8 % (21.0-51.0); %Neutrophils 59.5 % (42.0-75.0); Hemoglobin 12.3 g/dL (12.0-16.0); Mean Corpuscular HGB CONC 31.1 g/dL (32.0-36.0); Mean Corpuscular Hemoglobin 28.2 pg (27.0-31.0); Mean Corpuscular Volume 90.7 fL (78.0-98.0); Platelet Count 249 thou/uL (130-400); RBC Distribution Width 11.9 % (11.5-14.5); Red Blood Cell (RBC) Count 4.36 mill/uL (4.20-5.40); White Blood Cell (WBC) Count 6.8 thou/uL (4.8-10.8)
[2018-03-22 05:22] LABS: Anion Gap 11 mmol/L (10-20); BUN (Urea Nitrogen) 5 mg/dL (9.8-20.1); Calc. Creatinine Clearance 109 mL/min (70-130); Calcium 8.8 mg/dL (7.8-10.44); Carbon Dioxide 30 mmol/L (23-31); Chloride 106 mmol/L (98-107); Estimated GFR-MDRD Greater than 90; Glucose 75 mg/dL (83-110); Potassium 3.7 mmol/L (3.5-5.1); Sodium 143 mmol/L (136-145)
[2018-03-22] MEDS: MEROPENEM 1 GM/50 ML 1 GM in Premix Bag 1 BAG IVPB SCH (05:23)
[2018-03-22] MEDS: Acetaminophen 325 MG TAB PO PRN (05:27)
[2018-03-22] MEDS: Mometasone/Formoterol 120 PUFF INHALER INH SCH ×2 (07:11→19:16)
[2018-03-22] MEDS: Hydrochlorothiazide 25 MG TAB PO SCH (07:50)
[2018-03-22] MEDS: Losartan 25 MG TAB PO SCH (07:52)
[2018-03-22] MEDS: Nystatin Powder 15 GM BOT TOP PRN (07:57)
[2018-03-22] MEDS ORDERED: PROPOFOL 200 MG/20 ML VIAL ONE (08:17)
[2018-03-22] MEDS: NS 0.9% w/ 20 MEQ KCL 1,000 ML/1,000 ML BAG IV SCH ×2 (08:46→14:21)
[2018-03-22] MEDS ORDERED: Morphine 2 MG/ML SYRINGE SLOW IVP PRN (10:46)
[2018-03-22] MEDS ORDERED: Promethazine HCl 25 MG/ML VIAL SLOW IVP PRN (12:10)
[2018-03-22] MEDS ORDERED: Ondansetron HCl/PF 4 MG/2 ML Vial IVP PRN (12:10)
[2018-03-22] MEDS ORDERED: Promethazine HCl 25 MG/ML VIAL IM PRN (12:10)
--- NOTE | 2018-03-22 12:57 | OP ---
DATE OF PROCEDURE: 03/22/2018 PROCEDURE: Colonoscopy with snare polypectomy. SURGEON: Lazaro Orellana M.D. ANESTHESIA: Premedication given per Anesthesiology Department. PREPROCEDURE DIAGNOSES: 1. Lower abdominal pain with diarrhea (negative stool studies). 2. Abnormal CT suggesting ileitis. POSTPROCEDURE DIAGNOSES: 1. Three colon polyps, cecum, ascending colon and sigmoid colon. Removed. 2. Sigmoid diverticulosis coli. 3. Normal ileum and colon exam otherwise. PROCEDURE IN DETAIL: A written consent was obtained prior to procedure. After adequate sedation, re ctal exam performed was normal. Endoscope was advanced to the cecum. The quality of the bowel prep was good. The cecum appeared normal. The distal ileum was explored and visualized for approximately 15 cm and appeared normal. There were no inflammatory changes or ulcerations seen. In the cecum, a 5-mm sessile polyp was noted. It was removed with snare electrocautery. A 12-mm pedunculated polyp was noted in the ascending colon that was removed with electrocautery. Both polyps were retrieved. The hepatic flexure, transverse colon, descending colon appeared normal. A 4-mm sessile polyp was n oted in the sigmoid colon and that was removed with cold snare and retrieved. Numerous diverticula w ere noted in the sigmoid colon with hypertrophic folds and luminal narrowing. The rectal vault appea red normal including retroflexion. The mucosa appeared normal in the entire colon. There is no evid ence of inflammation or inflammatory bowel disease. ASSESSMENT: 1. Three colon polyps removed. 2. Sigmoid diverticulosis coli. 3. Otherwise normal distal ileum and colon exam. RECOMMENDATIONS: 1. Advance diet. 2. Await biopsy result of the polyps.
--- NOTE | 2018-03-22 14:58 | PDOC.PN ---
- Subjective Encounter Start Date: 03/22/18 Encounter Start Time: 10:20 Pt seen for followup re: diarrhea. Reports having diarrhea(took bowel prep). - Objective Resuscitation Status: Resuscitation Status FULL:Full Resuscitation Vital Signs & Weight: Vital Signs (12 hours) Temp Pulse Resp BP Pulse Ox 03/22/18 13:05 97.6 F 70 16 152/67 H 95 03/22/18 08:00 95 03/22/18 07:48 97.7 F 70 16 150/80 H 95 03/22/18 07:11 78 16 98 Weight Weight 179 lb 6.4 oz I&O: 03/21/18 03/22/18 03/23/18 06:59 06:59 06:59 Intake Total 1405 3400 Balance 1405 3400 Result Diagrams: 03/22/18 03:56 03/22/18 03:56 Phys Exam - Physical Examination Obese HEENT: moist MMs Neck: supple Respiratory: clear to auscultation bilateral Cardiovascular: RRR Gastrointestinal: soft Neurological: moves all 4 limbs Psychiatric: normal affect Dx/Plan (1) Diarrhea Code(s): R19.7 - DIARRHEA, UNSPECIFIED Status: Acute Comment: patient to have colonoscopy today. No evidence of infection on stool studies. (2) Ileitis Code(s): K52.9 - NONINFECTIVE GASTROENTERITIS AND COLITIS, UNSPECIFIED Status : Acute Comment: stool studies negative; antibiotics discontinued (3) HTN (hypertension) Code(s): I10 - ESSENTIAL (PRIMARY) HYPERTENSION Status: Chronic Comment: controlled (4) GERD (gastroesophageal reflux disease) Code(s): K21.9 - GASTRO-ESOPHAGEAL REFLUX DISEASE WITHOUT ESOPHAGITIS Status: Chronic Comment: stable (5) Asthma Code(s): J45.909 - UNSPECIFIED ASTHMA, UNCOMPLICATED Status: Chronic Comment : stable - Plan * . Review of Systems - Review of Systems Cardiovascular: negative: chest pain, palpitations, orthopnea, paroxysmal nocturnal dyspnea, edema, light headedness Gastrointestinal: Diarrhea. negative: Nausea, Vomiting, Abdominal Pain, Constipation, Melena, Hematochezia - Medications/Allergies Allergies/Adverse Reactions: Allergies Allergy/AdvReac Type Severity Reaction Status Date / Time Penicillins Allergy Verified 09/15/14 02:17 Medications: Current Medications Acetaminophen (Tylenol) 650 mg PO Q4H PRN PRN Reason: Headache/Fever/Mild Pain (1-3) Last Admin: 03/22/18 05:27 Dose: 650 mg Acetaminophen (Tylenol) 650 mg HI Q4H PRN PRN Reason: Headache/Fever/Mild Pain (1-3) Albuterol Sulfate (Proventil Hfa) 2 puff INH Q6H PRN PRN Reason: SOB &/or Wheezing Diphenhydramine HCl (Benadryl) 25 mg PO Q6H PRN PRN Reason: Itching & Insomnia Last Admin: 03/20/18 05:21 Dose: 25 mg Fentanyl (Pacu-Sublimaze) 25 mcg SLOW IVP Q10MIN PRN PRN Reason: Moderate to Severe Pain (6-10) Stop: 03/22/18 15:11 Hydralazine HCl (Apresoline) 10 mg SLOW IVP Q6H PRN PRN Reason: SBP Greater Than 170 Hydrochlorothiazide (Hydrochlorothiazide) 12.5 mg PO DAILY-AC [facility] Last Admin: 03/22/18 07:50 Dose: 12.5 mg Potassium Chloride/Sodium Chloride (Ns 0.9% W/ 20 Meq Kcl) 1,000 ml in 1,000 mls @ 75 mls/hr IV .[id number] COUNT [facility] Last Admin: 03/22/18 14:21 Dose: 1,000 mls Latanoprost (Xalatan 0.005% [facility]) 1 drop EA EYE HS COUNT [facility] Last Admin: 03/21/18 21:05 Dose: 1 drop Losartan Potassium (Cozaar) 100 mg PO DAILY-[facility] Last Admin: 03/22/18 07:52 Dose: 100 mg Mometasone Furoate/Formoterol Fumar (Dulera 100 Mcg/5 Mcg Inhaler) 2 puff INH BID-RT [facility] Last Admin: 03/22/18 07:11 Dose: 2 puff Morphine Sulfate (Morphine) 2 mg SLOW IVP Q4H PRN PRN Reason: Moderate to Severe Pain (6-10) Nystatin (Mycostatin Powder) 0 gm TOP Q6H PRN PRN Reason: Rash/Topical Irritation Last Admin: 03/22/18 07:57 Dose: 1 applic Ondansetron HCl (Zofran Odt) 4 mg PO Q6H PRN PRN Reason: Nausea/Vomiting Ondansetron HCl (Zofran) 4 mg IVP Q6H PRN PRN Reason: Nausea/Vomiting Last Admin: 03/21/18 13:31 Dose: 4 mg Ondansetron HCl (Pacu-Zofran) 4 mg IVP ONE PRN PRN Reason: Nausea/Vomiting Stop: 03/22/18 15:10 Pantoprazole Sodium (Protonix) 40 mg PO DAILY-[facility] Last Admin: 03/22/18 07:53 Dose: 40 mg Promethazine HCl (Pacu-Phenergan) 6.25 mg SLOW IVP ONE PRN PRN Reason: Nausea/Vomiting Stop: 03/22/18 15:10 Promethazine HCl (Pacu-Phenergan) 6.25 mg IM ONE PRN PRN Reason: Nausea/Vomiting Stop: 03/22/18 15:10 Sodium Chloride (Flush - Normal Saline) 10 ml IVF Q12HR [facility] Last Admin: 03/22/18 07:54 Dose: Not Given Sodium Chloride (Flush - Normal Saline) 10 ml IVF PRN PRN PRN Reason: Saline Flush
[2018-03-22] MEDS: Latanoprost 0.005% Ophth Soln 2.5 ml Bottle EA EYE SCH (20:05)
[2018-03-23] MEDS: NS 0.9% w/ 20 MEQ KCL 1,000 ML/1,000 ML BAG IV SCH ×2 (03:14→14:59)
[2018-03-23] MEDS: Mometasone/Formoterol 120 PUFF INHALER INH SCH ×2 (06:42→18:56)
[2018-03-23] MEDS: Ondansetron PF 4 MG/2 ML Vial IVP PRN (07:46)
[2018-03-23] MEDS: Hydrochlorothiazide 25 MG TAB PO SCH (07:47)
[2018-03-23] MEDS: Losartan 25 MG TAB PO SCH (07:54)
--- NOTE | 2018-03-23 14:11 | PRG ---
DATE OF SERVICE: 03/23/2018 SUBJECTIVE: The patient felt well yesterday and overnight. However, she had nausea associated with mid abdominal pain this morning. Currently, she feels fine. There is no actual vomiting. She did h ave 2 soft bowel movements this morning. No other complaint. PHYSICAL EXAMINATION: VITAL SIGNS: Temperature is 98.3, blood pressure 142/79, pulse 71. GENERAL: She is alert, conversant, in no distress. HEENT: Shows anicteric sclerae. Oropharynx clear. NECK: Supple. HEART: Normal S1, S2 regular rate and rhythm. CHEST: Normal breath sounds. ABDOMEN: Soft, protuberant, nontender, no palpable mass. She has active bowel sounds. EXTREMITIES: Shows no edema. LABORATORY DATA: None today. ASSESSMENT: 1. Abdominal pain associated with diarrhea, stool studies negative. A CT scan did not show any sign ificant findings except for possible ileitis, which was not seen on ileocolonoscopy. She does have e xtensive left-sided diverticulosis with luminal narrowing. 2. Colon polyps, status post polypectomy. 3. Abnormal CT with negative colonoscopy. Her distal ileum was normal, specifically without any antony dence of inflammatory bowel disease. 4. Diarrhea, resolving. Negative stool studies and colonoscopy. RECOMMENDATIONS: 1. Dicyclomine 10 mg p.o. t.i.d. 2. Add psyllium to her daily intake. 3. Out of bed, ambulate, home tomorrow if continues to do well.
[2018-03-23] MEDS: Dicyclomine 10 MG CAP PO SCH ×2 (14:58→20:01)
--- NOTE | 2018-03-23 16:42 | PDOC.PN ---
- Subjective Encounter Start Date: 03/23/18 Encounter Start Time: 16:39 Ms. Canales was seen today in follow-up of abdominal pain. She says she is doing better today. She had some nausea this morning, but that has resolved. She is tolerating her diet so far. - Objective Resuscitation Status: Resuscitation Status FULL:Full Resuscitation MAR Reviewed: Yes Vital Signs & Weight: Vital Signs (12 hours) Temp Pulse Resp BP BP Pulse Ox 03/23/18 11:23 98.3 F 71 18 143/79 H 96 03/23/18 08:00 97.8 F 67 16 135/85 97 03/23/18 07:59 96 Weight Weight 179 lb 6.4 oz I&O: 03/22/18 03/23/18 03/24/18 06:59 06:59 06:59 Intake Total 3400 2500 Balance 3400 2500 Result Diagrams: 03/22/18 03:56 03/22/18 03:56 Phys Exam - Physical Examination HEENT: PERRLA Respiratory: no wheezing, no rales, no rhonchi, clear to auscultation bilateral Cardiovascular: RRR, no significant murmur, no rub Gastrointestinal: soft, non-tender, no distention, positive bowel sounds Musculoskeletal: no edema, pulses present Neurological: non-focal, moves all 4 limbs Dx/Plan (1) Abdominal pain Code(s): R10.9 - UNSPECIFIED ABDOMINAL PAIN Status: Acute (2) Asthma Code(s): J45.909 - UNSPECIFIED ASTHMA, UNCOMPLICATED Status: Chronic Comment : stable (3) HTN (hypertension) Code(s): I10 - ESSENTIAL (PRIMARY) HYPERTENSION Status: Chronic Comment: controlled - Plan * Abdominal Pain- ? etiology- Colonoscopy results noted- patient started on a trial of Dicyclomine, and Psyllium * Asthma- stable * HTN- blood pressure is borderline- continue home medications, and PRN's * Advance diet, and hopefully home tomorrow.
[2018-03-23] MEDS: Acetaminophen 325 MG TAB PO PRN (20:00)
[2018-03-23] MEDS: Latanoprost 0.005% Ophth Soln 2.5 ml Bottle EA EYE SCH (20:02)
[2018-03-24] MEDS: NS 0.9% w/ 20 MEQ KCL 1,000 ML/1,000 ML BAG IV SCH (02:10)
[2018-03-24] MEDS: Mometasone/Formoterol 120 PUFF INHALER INH SCH (06:43)
[2018-03-24] MEDS: Hydrochlorothiazide 25 MG TAB PO SCH (07:57)
[2018-03-24] MEDS: Losartan 25 MG TAB PO SCH (07:58)
[2018-03-24] MEDS: Dicyclomine 10 MG CAP PO SCH (07:58)
[2018-03-24] MEDS ORDERED: Metamucil PACK PO SCH (09:00)
--- NOTE | 2018-03-24 12:12 | PDOC.PN ---
- Subjective Encounter Start Date: 03/24/18 Encounter Start Time: 12:10 Ms. Canales was seen today in follow-up of Abdominal pain and diarrhea. She says the abdominal pain has improved, but she has still had some loose stools off and on. - Objective Resuscitation Status: Resuscitation Status FULL:Full Resuscitation MAR Reviewed: Yes Vital Signs & Weight: Vital Signs (12 hours) Temp Pulse Resp BP Pulse Ox 03/24/18 08:00 95 03/24/18 07:54 97.8 F 73 12 142/80 H 95 03/24/18 06:43 82 18 96 Weight Weight 179 lb 6.4 oz I&O: 03/23/18 03/24/18 03/25/18 06:59 06:59 06:59 Intake Total 2500 2655 Balance 2500 2655 Result Diagrams: 03/22/18 03:56 03/22/18 03:56 Phys Exam - Physical Examination Respiratory: no wheezing, no rales, no rhonchi, clear to auscultation bilateral Cardiovascular: RRR, no significant murmur, no rub Gastrointestinal: soft, non-tender, no distention, positive bowel sounds Musculoskeletal: no edema Dx/Plan (1) Abdominal pain Code(s): R10.9 - UNSPECIFIED ABDOMINAL PAIN Status: Acute (2) Asthma Code(s): J45.909 - UNSPECIFIED ASTHMA, UNCOMPLICATED Status: Chronic Comment : stable (3) HTN (hypertension) Code(s): I10 - ESSENTIAL (PRIMARY) HYPERTENSION Status: Chronic Comment: controlled - Plan * Abdominal pain- resolved * HTN- blood pressure is stable * Stable for discharge home.
[2018-03-24 13:55] VITALS: BP 144/82; TEMP 98
--- NOTE | 2018-03-24 14:23 | DIS ---
DATE OF ADMISSION: 03/19/2018 DATE OF DISCHARGE: 03/24/2018 PRIMARY CARE PHYSICIAN: Jarocho Katz MD DISCHARGE DISPOSITION: Home. PRIMARY DISCHARGE DIAGNOSES: 1. Abdominal pain likely secondary to viral syndrome. 2. Hypertension. 3. Gastroesophageal reflux disease. 4. Asthma. DISCHARGE MEDICATIONS: Include dicyclomine 10 mg t.i.d. as needed for abdominal cramping, Metamucil 1 packet daily, Xalatan 1 drop in each eye at bedtime, pantoprazole 40 mg daily, Naprosyn 500 mg as n eeded, losartan/hydrochlorothiazide 100/12.5 one tablet daily, Symbicort 80/4.5 one puff inhaled twic e a day, and albuterol inhaler q.i.d. as needed. PROCEDURES DONE DURING ADMISSION: The patient had a CT scan of the abdomen and pelvis which showed s mall bowel wall thickening and edema with some fluid seen in the mesenteric fat and free fluid seen i n the pelvis. This could represent severe ileus but bowel wall ischemia should be considered. There was diverticulosis of the sigmoid colon but without any inflammatory changes. CODE STATUS: FULL CODE. ALLERGIES: PENICILLIN. HOSPITAL COURSE: Ms. Canales is a pleasant 72-year-old female who complains of abdominal pain. This w as preceded by 3 days of diarrhea. She was evaluated in the ER and due to concerns of a possible ile itis seen on CT scan. Gastroenterology was consulted and the patient actually underwent a colonoscop y. The inflammatory changes seen on CT scan were not observed during the colonoscopy procedure. She did have 3 colon polyps seen in the cecum, ascending colon and sigmoid colon. These were removed an d biopsied. 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 I t was thought that her symptoms, however, were likely related to possible viral gastroenteritis and w as slowly resolving during her hospital course. At the time of discharge, her symptoms were almost c ompletely resolved with the exception of some mild diarrhea. She was subsequently placed on dicyclom ine as well as Metamucil, and is being discharged home to have close followup with Dr. Orellana in 2 week s and also with her primary care physician in 1-2 weeks as well.
== END 2018-03-24 13:56 | disposition home or self-care (01) | DRG 392 ==
LOC: ERS 11:39 → T4-B 14:11
PROVIDERS: ADMIT Internal Medicine; ATTEND Internal Medicine
PROC: 0DBK8ZX Excision of Ascending Colon, Via Natural or Artificial Opening Endoscopic, Diagnostic (ICD-10-PCS; principal; 2018-03-22)
PROC: 0DBN8ZX Excision of Sigmoid Colon, Via Natural or Artificial Opening Endoscopic, Diagnostic (ICD-10-PCS; 2018-03-22)
PROC: 0DBH8ZX Excision of Cecum, Via Natural or Artificial Opening Endoscopic, Diagnostic (ICD-10-PCS; 2018-03-22)
DX: A08.4 Viral intestinal infection, unspecified (principal); J45.909 Unspecified asthma, uncomplicated; I10 Essential (primary) hypertension; K21.9 Gastro-esophageal reflux disease without esophagitis; F41.9 Anxiety disorder, unspecified; D72.829 Elevated white blood cell count, unspecified; K57.30 Diverticulosis of large intestine without perforation or abscess without bleeding; K63.5 Polyp of colon; D12.0 Benign neoplasm of cecum; D12.5 Benign neoplasm of sigmoid colon; D12.2 Benign neoplasm of ascending colon
CPT/HCPCS: 36415; 74177; 80048; 80053; 81003; 81015; 83605; 83690; 85025; 87045; 87046; 87081; 87324; 87449; 87899; 88305; 96361; 96374; 96375; 96376; J2185; J2270; J2405

== ENCOUNTER 2018-11-10 12:51 | Outpatient (CLI) | payer OTHER, MEDICARE ==
--- NOTE | 2018-11-30 07:57 | MMO ---
Bilateral MAMMO Bilat Screen [facility]. CLINICAL HISTORY: Patient is 73 years old and is seen for screening. The patient has no family history of breast cancer. The patient has no personal history of cancer. VIEWS: The views performed were: bilateral craniocaudal with tomosynthesis and bilateral mediolateral oblique with tomosynthesis. FILMS COMPARED: The present examination has been compared to prior imaging studies performed at [facility] on 12/07/2010, 12/10/2011 and 12/25/2012. MAMMOGRAM FINDINGS: There are scattered fibroglandular densities. There are no suspicious masses, suspicious calcifications, or new areas of architectural distortion. IMPRESSION: THERE IS NO MAMMOGRAPHIC EVIDENCE OF MALIGNANCY. A ROUTINE FOLLOW-UP MAMMOGRAM IN 1 YEAR IS RECOMMENDED. THE RESULTS OF THIS EXAM WERE SENT TO THE PATIENT. ACR BI-RADS Category 1 - Negative MAMMOGRAPHY NOTE: 1. A negative mammogram report should not delay a biopsy if a dominant of clinically suspicious mass is present. 2. Approximately 10% to 15% of breast cancers are not detected by mammography. 3. Adenosis and dense breasts may obscure an underlying neoplasm. Reported by: ASHLY ORDOÑEZ MD Electonically Signed: [id number]
== END 2018-11-10 12:52 | disposition home or self-care (01) ==
LOC: BICMAMMO 12:51
PROVIDERS: ATTEND Family Medicine
DX: Z12.31 Encounter for screening mammogram for malignant neoplasm of breast (principal)
CPT/HCPCS: 77063; 77067

== ENCOUNTER 2019-11-12 09:13 | Outpatient (CLI) | payer OTHER, MEDICARE ==
--- NOTE | 2019-11-12 09:56 | MMO ---
Bilateral MAMMO Bilat Screen [facility]. CLINICAL HISTORY: Patient is 74 years old and is seen for screening. The patient has no family history of breast cancer. The patient has no personal history of cancer. VIEWS: The views performed were: bilateral craniocaudal with tomosynthesis and bilateral mediolateral oblique with tomosynthesis. FILMS COMPARED: The present examination has been compared to prior imaging studies performed at [facility] on 12/07/2010, 12/10/2011 and 12/25/2012, and at [facility] on 11/10/2018. This study has been interpreted with the assistance of computer-aided detection. MAMMOGRAM FINDINGS: There are scattered fibroglandular densities. There are no suspicious masses, suspicious calcifications, or new areas of architectural distortion. IMPRESSION: THERE IS NO MAMMOGRAPHIC EVIDENCE OF MALIGNANCY. A ROUTINE FOLLOW-UP MAMMOGRAM IN 1 YEAR IS RECOMMENDED. THE RESULTS OF THIS EXAM WERE SENT TO THE PATIENT. ACR BI-RADS Category 1 - Negative MAMMOGRAPHY NOTE: 1. A negative mammogram report should not delay a biopsy if a dominant of clinically suspicious mass is present. 2. Approximately 10% to 15% of breast cancers are not detected by mammography. 3. Adenosis and dense breasts may obscure an underlying neoplasm. Reported by: KUSH MCCAIN MD Electonically Signed: [id number]
== END 2019-11-12 09:14 | disposition home or self-care (01) ==
LOC: BICMAMMO 09:13
PROVIDERS: ATTEND Family Medicine
DX: Z12.31 Encounter for screening mammogram for malignant neoplasm of breast (principal)
CPT/HCPCS: 77063; 77067

== ENCOUNTER 2020-11-12 10:26 | Outpatient (CLI) | payer MEDICARE | END 2020-11-12 10:27 | disposition home or self-care (01) | LOC: BICMAMMO 10:26 | PROVIDERS: ATTEND Family Medicine | DX: Z12.31 Encounter for screening mammogram for malignant neoplasm of breast (principal) | CPT/HCPCS: 77063; 77067 ==

== ENCOUNTER 2021-01-07 13:02 | Inpatient (IN) | payer OTHER, MEDICARE ==
[2021-01-07] MEDS ORDERED: Dexamethasone 4 MG TAB ONE (13:25)
[2021-01-07] MEDS ORDERED: Acetaminophen 500 MG TAB ONE (13:25)
[2021-01-07] MEDS ORDERED: Dexamethasone 4 mg/ml Vial ONE (13:26)
[2021-01-07 13:50] LABS: Hemoglobin 14.4 g/dL (12.0-16.0); Mean Corpuscular HGB CONC 31.8 g/dL (32.0-36.0); Mean Corpuscular Hemoglobin 27.9 pg (27.0-31.0); Mean Corpuscular Volume 87.6 fL (78.0-98.0); Mean Platelet Volume 8.1 fL (7.4-10.4); Platelet Count 312 thou/uL (130-400); RBC Distribution Width 13.2 % (11.5-14.5); Red Blood Cell (RBC) Count 5.17 mill/uL (4.20-5.40); White Blood Cell (WBC) Count 18.5 thou/uL (4.8-10.8)
[2021-01-07] MEDS ORDERED: Ibuprofen 800 MG TAB ONE (13:51)
[2021-01-07 14:04] LABS: Band 1 % (5-11); Eosinophils 2 % (0-10); Lymphocytes 4 % (21-51); MDiff Complete? YES; Metamyelocyte 1 % (0-0); Monocytes 5 % (0-10); Myelocyte 1 % (0-0); Neutrophil 86 % (42-75); Platelet Morphology Comment Appears Adequate; RBC Morphology Normal
[2021-01-07 14:12] LABS: ALT (SGPT) 91 U/L (8-55); AST (SGOT) 41 U/L (5-34); Albumin 3.3 g/dL (3.4-4.8); Alkaline Phosphatase 145 U/L (40-110); Anion Gap 16 mmol/L (10-20); BUN (Urea Nitrogen) 50 mg/dL (9.8-20.1); Bilirubin, Total 0.4 mg/dL (0.2-1.2); Calc. Creatinine Clearance 0 mL/min (70-130); Calcium 8.8 mg/dL (7.8-10.44); Carbon Dioxide 22 mmol/L (23-31); Chloride 105 mmol/L (98-107); Globulin 3.1 g/dL (2.4-3.5); Glucose 108 mg/dL (83-110); Potassium 3.9 mmol/L (3.5-5.1); Protein, Total 6.4 g/dL (5.8-8.1); Sodium 139 mmol/L (136-145)
[2021-01-07] MEDS ORDERED: diphenhydrAMINE 50 MG/ML VIAL ONE ×2 (14:18→22:00)
[2021-01-07] MEDS ORDERED: Famotidine/PF 20 mg/2ml Vial ONE ×2 (14:18→22:00)
[2021-01-07] MEDS ORDERED: methylPREDNISolone Sod Succ 40 MG VIAL ONE (14:18)
[2021-01-07] MEDS ORDERED: hydrALAZINE 20 MG/ML VIAL SLOW IVP PRN (16:32)
[2021-01-07 16:46] LABS: Lactic Acid 1.8 mmol/L (0.5-2.2)
[2021-01-07] MEDS: Mometasone 200 MCG/Formoterol 5 MCG 120 PUFF INHALER INH SCH (18:30)
[2021-01-07] MEDS ORDERED: REMDESIVIR 200 MG in Sodium Chloride 0.9% 250 ML 210 ML IV SCH (18:45)
[2021-01-07] MEDS ORDERED: Cefepime 1 GM in Sodium Chloride 0.9% 100 ML IVPB SCH (21:00)
[2021-01-07] MEDS ORDERED: Famotidine/PF 20 mg/2ml Vial SLOW IVP SCH (21:00)
[2021-01-07] MEDS: Enoxaparin Sodium 40 MG/0.4 ML SYRINGE SC SCH (21:09)
[2021-01-07] MEDS: Dexamethasone 10 MG/ML VIAL SLOW IVP SCH (21:10)
[2021-01-07] MEDS ORDERED: Hydrocortisone Sod Succ/PF 100 mg/2 ml Vial ONE (22:00)
[2021-01-08 04:41] LABS: #Eosinphils 0.1 thou/uL (0.0-0.7); #Lymphocytes 0.5 thou/uL (1.20-3.40); #Monocytes 0.4 thou/uL (0.11-0.59); #Neutrophils 11.7 thou/uL (1.40-6.50); %Eosinophils 0.6 % (0.0-10.0); %Lymphocytes 3.5 % (21.0-51.0); %Monocytes 3.3 % (0.0-10.0); %Neutrophils 92.6 % (42.0-75.0); Hemoglobin 13.7 g/dL (12.0-16.0); Mean Corpuscular HGB CONC 32.7 g/dL (32.0-36.0); Mean Corpuscular Hemoglobin 28.7 pg (27.0-31.0); Mean Corpuscular Volume 87.8 fL (78.0-98.0); Mean Platelet Volume 8.6 fL (7.4-10.4); Platelet Count 288 thou/uL (130-400); RBC Distribution Width 13.1 % (11.5-14.5); Red Blood Cell (RBC) Count 4.76 mill/uL (4.20-5.40); White Blood Cell (WBC) Count 12.6 thou/uL (4.8-10.8)
[2021-01-08 05:03] LABS: Anion Gap 15 mmol/L (10-20); BUN (Urea Nitrogen) 51 mg/dL (9.8-20.1); CRP (Inflammatory) 11.12 mg/dL (= or < 0.5); Calc. Creatinine Clearance 58 mL/min (70-130); Calcium 9.5 mg/dL (7.8-10.44); Carbon Dioxide 22 mmol/L (23-31); Chloride 108 mmol/L (98-107); Glucose 209 mg/dL (83-110); Potassium 4.6 mmol/L (3.5-5.1); Sodium 140 mmol/L (136-145)
[2021-01-08] MEDS: Losartan 25 MG TAB PO SCH (08:37)
[2021-01-08] MEDS: Mometasone 200 MCG/Formoterol 5 MCG 120 PUFF INHALER INH SCH ×2 (08:37→20:01)
[2021-01-08] MEDS: Dexamethasone 10 MG/ML VIAL SLOW IVP SCH ×2 (08:37→21:38)
[2021-01-08] MEDS: Enoxaparin Sodium 40 MG/0.4 ML SYRINGE SC SCH ×2 (08:37→21:39)
[2021-01-08] MEDS ORDERED: Cefepime 1 GM in Sodium Chloride 0.9% 100 ML IVPB SCH (09:00)
[2021-01-08] MEDS: Acetaminophen 325 MG TAB PO PRN (10:53)
[2021-01-08] MEDS ORDERED: Albuterol 200 PUFF (6.7GM INHALER) INH SCH (13:00)
[2021-01-08] MEDS ORDERED: REMDESIVIR 100 MG in Sodium Chloride 0.9% 250 ML 230 ML IV SCH (18:45)
[2021-01-08] MEDS: Albuterol 200 PUFF (6.7GM INHALER) INH SCH ×2 (20:00→22:39)
[2021-01-08] MEDS ORDERED: Latanoprost 0.005% Ophth Soln 2.5 ml Bottle EA EYE SCH (23:15)
[2021-01-09] MEDS: Albuterol 200 PUFF (6.7GM INHALER) INH SCH ×6 (03:05→22:51)
[2021-01-09 05:05] LABS: Hemoglobin 13.5 g/dL (12.0-16.0); Mean Corpuscular HGB CONC 32.1 g/dL (32.0-36.0); Mean Corpuscular Hemoglobin 28.4 pg (27.0-31.0); Mean Corpuscular Volume 88.3 fL (78.0-98.0); Platelet Count 314 thou/uL (130-400); RBC Distribution Width 13.1 % (11.5-14.5); Red Blood Cell (RBC) Count 4.75 mill/uL (4.20-5.40); White Blood Cell (WBC) Count 18.3 thou/uL (4.8-10.8)
[2021-01-09 05:20] LABS: Anion Gap 11 mmol/L (10-20); BUN (Urea Nitrogen) 57 mg/dL (9.8-20.1); Calc. Creatinine Clearance 63 mL/min (70-130); Calcium 9.6 mg/dL (7.8-10.44); Carbon Dioxide 26 mmol/L (23-31); Chloride 111 mmol/L (98-107); Glucose 156 mg/dL (83-110); Potassium 4.3 mmol/L (3.5-5.1); Sodium 144 mmol/L (136-145)
[2021-01-09 07:47] LABS: Band 4 % (5-11); Lymphocytes 6 % (21-51); MDiff Complete? YES; Monocytes 3 % (0-10); Myelocyte 1 % (0-0); Neutrophil 85 % (42-75); Platelet Morphology Comment Appears Adequate; RBC Morphology Normal; Reactive Lymphocytes 1 % (0-10)
[2021-01-09] MEDS: Mometasone 200 MCG/Formoterol 5 MCG 120 PUFF INHALER INH SCH ×2 (08:21→19:27)
[2021-01-09] MEDS: Losartan 25 MG TAB PO SCH (08:37)
[2021-01-09] MEDS: Acetaminophen 325 MG TAB PO PRN (08:38)
[2021-01-09] MEDS: Enoxaparin Sodium 40 MG/0.4 ML SYRINGE SC SCH ×2 (08:39→20:57)
[2021-01-09] MEDS: Dexamethasone 10 MG/ML VIAL SLOW IVP SCH ×2 (09:24→20:57)
[2021-01-09] MEDS: ALPRAZolam 0.25 MG TAB PO PRN ×2 (09:25→21:23)
[2021-01-09] MEDS ORDERED: Lidocaine 1% (PF) 30 ML VIAL ONE (09:41)
[2021-01-09] MEDS ORDERED: Lidocaine 1% w/Epinephrine 1:100K 20 ML VIAL ONE (10:00)
[2021-01-09] MEDS: Morphine 2 MG/ML VIAL SLOW IVP PRN ×3 (10:37→19:38)
[2021-01-09] MEDS: Latanoprost 0.005% Ophth Soln 2.5 ml Bottle EA EYE SCH (20:47)
[2021-01-10] MEDS: Albuterol 200 PUFF (6.7GM INHALER) INH SCH ×6 (03:44→22:27)
[2021-01-10] MEDS: Morphine 2 MG/ML VIAL SLOW IVP PRN ×3 (03:57→21:22)
[2021-01-10 04:33] LABS: Anion Gap 16 mmol/L (10-20); BUN (Urea Nitrogen) 64 mg/dL (9.8-20.1); Calc. Creatinine Clearance 65 mL/min (70-130); Carbon Dioxide 21 mmol/L (23-31); Chloride 108 mmol/L (98-107); Potassium 4.6 mmol/L (3.5-5.1); Sodium 140 mmol/L (136-145)
[2021-01-10 04:34] LABS: CRP (Inflammatory) 2.91 mg/dL (= or < 0.5); Calcium 9.3 mg/dL (7.8-10.44); Glucose 158 mg/dL (83-110)
[2021-01-10 06:00] LABS: Hemoglobin 12.8 g/dL (12.0-16.0); Mean Corpuscular HGB CONC 33.5 g/dL (32.0-36.0); Mean Corpuscular Hemoglobin 29.6 pg (27.0-31.0); Mean Corpuscular Volume 88.5 fL (78.0-98.0); Mean Platelet Volume 8.3 fL (7.4-10.4); Platelet Count 296 thou/uL (130-400); RBC Distribution Width 13.1 % (11.5-14.5); Red Blood Cell (RBC) Count 4.33 mill/uL (4.20-5.40); White Blood Cell (WBC) Count 14.8 thou/uL (4.8-10.8)
[2021-01-10 06:24] LABS: Band 5 % (5-11); Lymphocytes 2 % (21-51); MDiff Complete? YES; Monocytes 8 % (0-10); Myelocyte 1 % (0-0); Neutrophil 84 % (42-75)
[2021-01-10] MEDS: Mometasone 200 MCG/Formoterol 5 MCG 120 PUFF INHALER INH SCH ×2 (08:00→19:15)
[2021-01-10] MEDS: Dexamethasone 10 MG/ML VIAL SLOW IVP SCH (08:17)
[2021-01-10] MEDS: Enoxaparin Sodium 40 MG/0.4 ML SYRINGE SC SCH ×2 (08:18→21:03)
[2021-01-10] MEDS: Losartan 25 MG TAB PO SCH (09:28)
[2021-01-10] MEDS: Acetaminophen 325 MG TAB PO PRN (13:31)
[2021-01-10] MEDS: ALPRAZolam 0.25 MG TAB PO PRN ×2 (16:55→21:22)
[2021-01-10] MEDS: Latanoprost 0.005% Ophth Soln 2.5 ml Bottle EA EYE SCH (21:04)
[2021-01-11] MEDS: Dexamethasone 10 MG/ML VIAL SLOW IVP SCH ×3 (01:27→21:08)
[2021-01-11 03:29] LABS: #Eosinphils 0.1 thou/uL (0.0-0.7); #Lymphocytes 0.4 thou/uL (1.20-3.40); #Monocytes 1.1 thou/uL (0.11-0.59); #Neutrophils 15.4 thou/uL (1.40-6.50); %Eosinophils 0.3 % (0.0-10.0); %Lymphocytes 2.6 % (21.0-51.0); %Monocytes 6.2 % (0.0-10.0); %Neutrophils 90.9 % (42.0-75.0); Hemoglobin 12.2 g/dL (12.0-16.0); Mean Corpuscular HGB CONC 32.7 g/dL (32.0-36.0); Mean Corpuscular Hemoglobin 28.7 pg (27.0-31.0); Mean Corpuscular Volume 87.9 fL (78.0-98.0); Mean Platelet Volume 8.9 fL (7.4-10.4); Platelet Count 263 thou/uL (130-400); RBC Distribution Width 13.4 % (11.5-14.5); Red Blood Cell (RBC) Count 4.24 mill/uL (4.20-5.40)
[2021-01-11] MEDS: Albuterol 200 PUFF (6.7GM INHALER) INH SCH ×6 (03:38→22:43)
[2021-01-11 03:49] LABS: ALT (SGPT) 73 U/L (8-55); AST (SGOT) 24 U/L (5-34); Alkaline Phosphatase 112 U/L (40-110); Anion Gap 15 mmol/L (10-20); BUN (Urea Nitrogen) 77 mg/dL (9.8-20.1); Bilirubin, Total 0.5 mg/dL (0.2-1.2); Calc. Creatinine Clearance 66 mL/min (70-130); Calcium 9.2 mg/dL (7.8-10.44); Carbon Dioxide 22 mmol/L (23-31); Chloride 108 mmol/L (98-107); Globulin 3.3 g/dL (2.4-3.5); Glucose 151 mg/dL (83-110); Magnesium 2.3 mg/dL (1.6-2.6); Phosphorus 4.2 mg/dL (2.3-4.7); Potassium 4.9 mmol/L (3.5-5.1); Protein, Total 6.3 g/dL (5.8-8.1); Sodium 140 mmol/L (136-145)
[2021-01-11] MEDS: Enoxaparin Sodium 40 MG/0.4 ML SYRINGE SC SCH ×2 (08:50→21:10)
[2021-01-11] MEDS: Mometasone 200 MCG/Formoterol 5 MCG 120 PUFF INHALER INH SCH ×2 (08:53→18:59)
[2021-01-11] MEDS: Morphine 2 MG/ML VIAL SLOW IVP PRN ×3 (09:22→21:15)
[2021-01-11] MEDS: ALPRAZolam 0.25 MG TAB PO PRN ×3 (09:23→21:15)
[2021-01-11] MEDS: Losartan 25 MG TAB PO SCH (09:30)
[2021-01-11] MEDS: Latanoprost 0.005% Ophth Soln 2.5 ml Bottle EA EYE SCH (21:09)
[2021-01-12] MEDS: Albuterol 200 PUFF (6.7GM INHALER) INH SCH ×4 (03:03→16:05)
[2021-01-12] MEDS: Morphine 2 MG/ML VIAL SLOW IVP PRN ×6 (03:12→21:43)
[2021-01-12 04:30] LABS: Hemoglobin 12.4 g/dL (12.0-16.0); Mean Corpuscular HGB CONC 33.1 g/dL (32.0-36.0); Mean Corpuscular Hemoglobin 29.3 pg (27.0-31.0); Mean Corpuscular Volume 88.6 fL (78.0-98.0); Mean Platelet Volume 8.9 fL (7.4-10.4); Platelet Count 231 thou/uL (130-400); RBC Distribution Width 13.1 % (11.5-14.5); Red Blood Cell (RBC) Count 4.22 mill/uL (4.20-5.40); White Blood Cell (WBC) Count 18.7 thou/uL (4.8-10.8)
[2021-01-12 04:40] LABS: Phosphorus 3.6 mg/dL (2.3-4.7)
[2021-01-12 04:41] LABS: ALT (SGPT) 66 U/L (8-55); AST (SGOT) 25 U/L (5-34); Albumin 3.1 g/dL (3.4-4.8); Alkaline Phosphatase 121 U/L (40-110); Anion Gap 11 mmol/L (10-20); BUN (Urea Nitrogen) 64 mg/dL (9.8-20.1); Bilirubin, Total 0.5 mg/dL (0.2-1.2); Calc. Creatinine Clearance 76 mL/min (70-130); Calcium 9.3 mg/dL (7.8-10.44); Carbon Dioxide 25 mmol/L (23-31); Chloride 108 mmol/L (98-107); Globulin 3.2 g/dL (2.4-3.5); Glucose 153 mg/dL (83-110); Magnesium 2.2 mg/dL (1.6-2.6); Potassium 4.6 mmol/L (3.5-5.1); Protein, Total 6.3 g/dL (5.8-8.1); Sodium 139 mmol/L (136-145)
[2021-01-12 05:06] LABS: Band 6 % (5-11); MDiff Complete? YES; Monocytes 9 % (0-10); Neutrophil 85 % (42-75)
[2021-01-12] MEDS: ALPRAZolam 0.25 MG TAB PO PRN ×3 (05:56→21:41)
[2021-01-12] MEDS: Mometasone 200 MCG/Formoterol 5 MCG 120 PUFF INHALER INH SCH ×2 (07:48→19:00)
[2021-01-12] MEDS: Losartan 25 MG TAB PO SCH (08:03)
[2021-01-12] MEDS: Enoxaparin Sodium 40 MG/0.4 ML SYRINGE SC SCH ×2 (08:04→21:42)
[2021-01-12] MEDS: Dexamethasone 10 MG/ML VIAL SLOW IVP SCH ×2 (08:33→23:53)
[2021-01-12] MEDS: Colchicine 0.3 MG TAB PO SCH ×2 (09:54→21:41)
[2021-01-12] MEDS: Latanoprost 0.005% Ophth Soln 2.5 ml Bottle EA EYE SCH (21:40)
[2021-01-13] MEDS: Morphine 2 MG/ML VIAL SLOW IVP PRN ×4 (02:18→23:25)
[2021-01-13] MEDS: Albuterol 200 PUFF (6.7GM INHALER) INH SCH ×7 (02:32→21:52)
[2021-01-13 04:00] LABS: #Eosinphils 0.1 thou/uL (0.0-0.7); #Lymphocytes 0.8 thou/uL (1.20-3.40); #Monocytes 1.2 thou/uL (0.11-0.59); #Neutrophils 16.7 thou/uL (1.40-6.50); %Basophils 0.1 % (0.0-1.0); %Eosinophils 0.5 % (0.0-10.0); %Lymphocytes 4.3 % (21.0-51.0); %Monocytes 6.2 % (0.0-10.0); %Neutrophils 88.9 % (42.0-75.0); Hemoglobin 12.8 g/dL (12.0-16.0); Mean Corpuscular HGB CONC 33.2 g/dL (32.0-36.0); Mean Corpuscular Hemoglobin 29.6 pg (27.0-31.0); Mean Corpuscular Volume 89.1 fL (78.0-98.0); Platelet Count 236 thou/uL (130-400); RBC Distribution Width 13.4 % (11.5-14.5); Red Blood Cell (RBC) Count 4.34 mill/uL (4.20-5.40); White Blood Cell (WBC) Count 18.8 thou/uL (4.8-10.8)
[2021-01-13 04:10] LABS: Anion Gap 12 mmol/L (10-20); BUN (Urea Nitrogen) 76 mg/dL (9.8-20.1); Calc. Creatinine Clearance 72 mL/min (70-130); Calcium 9.5 mg/dL (7.8-10.44); Carbon Dioxide 25 mmol/L (23-31); Chloride 108 mmol/L (98-107); Glucose 118 mg/dL (83-110); Potassium 4.4 mmol/L (3.5-5.1); Sodium 141 mmol/L (136-145)
[2021-01-13] MEDS: ALPRAZolam 0.25 MG TAB PO PRN ×3 (04:41→16:14)
[2021-01-13] MEDS: Mometasone 200 MCG/Formoterol 5 MCG 120 PUFF INHALER INH SCH ×2 (07:10→19:15)
[2021-01-13] MEDS: Enoxaparin Sodium 40 MG/0.4 ML SYRINGE SC SCH ×2 (09:03→20:07)
[2021-01-13] MEDS: Colchicine 0.3 MG TAB PO SCH ×2 (09:04→20:07)
[2021-01-13] MEDS: Dexamethasone 10 MG/ML VIAL SLOW IVP SCH ×2 (09:04→20:07)
[2021-01-13] MEDS: HYDROcodone/Acetaminophen 5/325 mg Tablet PO PRN ×2 (13:21→20:06)
[2021-01-13] MEDS: fentaNYL 50 mcg/hour Patch TD SCH (13:22)
[2021-01-13] MEDS: Losartan 25 MG TAB PO SCH (13:36)
[2021-01-13] MEDS: Latanoprost 0.005% Ophth Soln 2.5 ml Bottle EA EYE SCH (22:06)
[2021-01-14] MEDS: Albuterol 200 PUFF (6.7GM INHALER) INH SCH ×6 (02:45→22:41)
[2021-01-14] MEDS: HYDROcodone/Acetaminophen 5/325 mg Tablet PO PRN ×2 (03:35→20:57)
[2021-01-14 04:04] LABS: #Eosinphils 0.1 thou/uL (0.0-0.7); #Lymphocytes 0.5 thou/uL (1.20-3.40); #Monocytes 0.9 thou/uL (0.11-0.59); #Neutrophils 14.9 thou/uL (1.40-6.50); %Eosinophils 0.4 % (0.0-10.0); %Monocytes 5.2 % (0.0-10.0); %Neutrophils 91.4 % (42.0-75.0); Mean Corpuscular HGB CONC 33.2 g/dL (32.0-36.0); Mean Corpuscular Hemoglobin 29.1 pg (27.0-31.0); Mean Corpuscular Volume 87.7 fL (78.0-98.0); Mean Platelet Volume 9.2 fL (7.4-10.4); Platelet Count 220 thou/uL (130-400); RBC Distribution Width 13.3 % (11.5-14.5); Red Blood Cell (RBC) Count 4.46 mill/uL (4.20-5.40); White Blood Cell (WBC) Count 16.3 thou/uL (4.8-10.8)
[2021-01-14 04:33] LABS: Anion Gap 14 mmol/L (10-20); BUN (Urea Nitrogen) 60 mg/dL (9.8-20.1); Calc. Creatinine Clearance 87 mL/min (70-130); Calcium 9.7 mg/dL (7.8-10.44); Carbon Dioxide 22 mmol/L (23-31); Chloride 111 mmol/L (98-107); Glucose 162 mg/dL (83-110); Potassium 4.3 mmol/L (3.5-5.1); Sodium 143 mmol/L (136-145)
[2021-01-14] MEDS: Mometasone 200 MCG/Formoterol 5 MCG 120 PUFF INHALER INH SCH ×2 (08:24→18:50)
[2021-01-14] MEDS: Colchicine 0.3 MG TAB PO SCH ×2 (08:43→20:57)
[2021-01-14] MEDS: Enoxaparin Sodium 40 MG/0.4 ML SYRINGE SC SCH ×2 (08:44→20:56)
[2021-01-14] MEDS: Losartan 25 MG TAB PO SCH (08:44)
[2021-01-14] MEDS: Dexamethasone 10 MG/ML VIAL SLOW IVP SCH ×2 (08:44→20:56)
[2021-01-14] MEDS: ALPRAZolam 0.25 MG TAB PO PRN ×2 (08:46→17:43)
[2021-01-14] MEDS: Morphine 2 MG/ML VIAL SLOW IVP PRN ×2 (14:24→23:16)
[2021-01-14] MEDS: Latanoprost 0.005% Ophth Soln 2.5 ml Bottle EA EYE SCH (21:08)
[2021-01-15] MEDS: Albuterol 200 PUFF (6.7GM INHALER) INH SCH ×6 (02:50→22:56)
[2021-01-15 04:19] LABS: Hemoglobin 12.6 g/dL (12.0-16.0); Mean Corpuscular HGB CONC 32.8 g/dL (32.0-36.0); Mean Corpuscular Hemoglobin 28.9 pg (27.0-31.0); Mean Corpuscular Volume 88.1 fL (78.0-98.0); Mean Platelet Volume 9.3 fL (7.4-10.4); Platelet Count 219 thou/uL (130-400); RBC Distribution Width 13.3 % (11.5-14.5); Red Blood Cell (RBC) Count 4.35 mill/uL (4.20-5.40); White Blood Cell (WBC) Count 18.3 thou/uL (4.8-10.8)
[2021-01-15 04:29] LABS: Anion Gap 12 mmol/L (10-20); BUN (Urea Nitrogen) 61 mg/dL (9.8-20.1); Calc. Creatinine Clearance 80 mL/min (70-130); Calcium 9.3 mg/dL (7.8-10.44); Carbon Dioxide 23 mmol/L (23-31); Chloride 110 mmol/L (98-107); Glucose 163 mg/dL (83-110); Potassium 4.5 mmol/L (3.5-5.1); Sodium 140 mmol/L (136-145)
[2021-01-15] MEDS: HYDROcodone/Acetaminophen 5/325 mg Tablet PO PRN ×2 (05:11→14:00)
[2021-01-15] MEDS: ALPRAZolam 0.25 MG TAB PO PRN ×3 (05:11→20:34)
[2021-01-15 05:37] LABS: Band 16 % (5-11); Lymphocytes 4 % (21-51); MDiff Complete? YES; Monocytes 3 % (0-10); Neutrophil 77 % (42-75)
[2021-01-15] MEDS: Mometasone 200 MCG/Formoterol 5 MCG 120 PUFF INHALER INH SCH ×2 (06:51→19:28)
[2021-01-15] MEDS: Losartan 25 MG TAB PO SCH (07:43)
[2021-01-15] MEDS: Dexamethasone 10 MG/ML VIAL SLOW IVP SCH ×2 (07:43→20:34)
[2021-01-15] MEDS: Colchicine 0.3 MG TAB PO SCH ×2 (07:44→20:34)
[2021-01-15] MEDS: Enoxaparin Sodium 40 MG/0.4 ML SYRINGE SC SCH ×2 (07:44→20:33)
[2021-01-15] MEDS: Morphine 2 MG/ML VIAL SLOW IVP PRN ×2 (11:10→20:51)
[2021-01-15] MEDS: Latanoprost 0.005% Ophth Soln 2.5 ml Bottle EA EYE SCH (20:35)
[2021-01-16] MEDS: ALPRAZolam 0.25 MG TAB PO PRN ×4 (02:08→22:08)
[2021-01-16] MEDS: Morphine 2 MG/ML VIAL SLOW IVP PRN ×3 (02:48→17:07)
[2021-01-16] MEDS: Albuterol 200 PUFF (6.7GM INHALER) INH SCH ×6 (03:20→22:04)
[2021-01-16] MEDS: Mometasone 200 MCG/Formoterol 5 MCG 120 PUFF INHALER INH SCH ×2 (08:30→17:03)
[2021-01-16] MEDS: Dexamethasone 4 mg/ml Vial SLOW IVP SCH ×2 (09:37→20:29)
[2021-01-16] MEDS: Enoxaparin Sodium 40 MG/0.4 ML SYRINGE SC SCH ×2 (09:41→20:29)
[2021-01-16] MEDS: Losartan 25 MG TAB PO SCH (09:41)
[2021-01-16] MEDS: Colchicine 0.3 MG TAB PO SCH ×2 (09:42→20:29)
[2021-01-16] MEDS: fentaNYL 50 mcg/hour Patch TD SCH (11:54)
[2021-01-16] MEDS: Senokot S 8.6-50 MG TAB PO SCH (20:29)
[2021-01-16] MEDS: Latanoprost 0.005% Ophth Soln 2.5 ml Bottle EA EYE SCH (20:36)
[2021-01-17] MEDS: Albuterol 200 PUFF (6.7GM INHALER) INH SCH ×6 (04:00→23:02)
[2021-01-17] MEDS: ALPRAZolam 0.25 MG TAB PO PRN ×2 (06:17→18:44)
[2021-01-17] MEDS: Mometasone 200 MCG/Formoterol 5 MCG 120 PUFF INHALER INH SCH ×2 (08:33→17:35)
[2021-01-17] MEDS: Losartan 25 MG TAB PO SCH (09:38)
[2021-01-17] MEDS: Colchicine 0.3 MG TAB PO SCH ×2 (09:38→20:31)
[2021-01-17] MEDS: Senokot S 8.6-50 MG TAB PO SCH ×2 (09:38→20:31)
[2021-01-17] MEDS: Enoxaparin Sodium 40 MG/0.4 ML SYRINGE SC SCH ×2 (09:39→20:33)
[2021-01-17] MEDS: Dexamethasone 4 mg/ml Vial SLOW IVP SCH ×2 (09:39→20:32)
[2021-01-17] MEDS: Morphine 2 MG/ML VIAL SLOW IVP PRN ×2 (10:17→21:48)
[2021-01-17] MEDS: Polyethylene Glycol 3350 17 GM Packet PO PRN (10:32)
[2021-01-17 11:58] LABS: ALT (SGPT) 60 U/L (8-55); AST (SGOT) 22 U/L (5-34); Albumin 2.7 g/dL (3.4-4.8); Alkaline Phosphatase 117 U/L (40-110); Anion Gap 12 mmol/L (10-20); BUN (Urea Nitrogen) 53 mg/dL (9.8-20.1); Bilirubin, Total 0.6 mg/dL (0.2-1.2); Calc. Creatinine Clearance 92 mL/min (70-130); Calcium 9.1 mg/dL (7.8-10.44); Carbon Dioxide 23 mmol/L (23-31); Chloride 111 mmol/L (98-107); Globulin 3.5 g/dL (2.4-3.5); Glucose 110 mg/dL (83-110); Potassium 4.6 mmol/L (3.5-5.1); Protein, Total 6.2 g/dL (5.8-8.1); Sodium 141 mmol/L (136-145)
[2021-01-17] MEDS: Latanoprost 0.005% Ophth Soln 2.5 ml Bottle EA EYE SCH (21:15)
[2021-01-18] MEDS: Albuterol 200 PUFF (6.7GM INHALER) INH SCH ×5 (03:03→18:33)
[2021-01-18] MEDS: ALPRAZolam 0.25 MG TAB PO PRN ×3 (03:23→20:51)
[2021-01-18] MEDS: Mometasone 200 MCG/Formoterol 5 MCG 120 PUFF INHALER INH SCH ×2 (06:12→18:33)
[2021-01-18] MEDS: Senokot S 8.6-50 MG TAB PO SCH ×2 (08:37→20:51)
[2021-01-18] MEDS: Polyethylene Glycol 3350 17 GM Packet PO PRN (08:37)
[2021-01-18] MEDS: Losartan 25 MG TAB PO SCH (08:37)
[2021-01-18] MEDS: Dexamethasone 4 mg/ml Vial SLOW IVP SCH (08:37)
[2021-01-18] MEDS: Colchicine 0.3 MG TAB PO SCH ×2 (08:38→21:20)
[2021-01-18] MEDS: Enoxaparin Sodium 40 MG/0.4 ML SYRINGE SC SCH ×2 (08:38→20:52)
[2021-01-18] MEDS: Morphine 2 MG/ML VIAL SLOW IVP PRN ×3 (13:12→23:23)
[2021-01-18] MEDS: Latanoprost 0.005% Ophth Soln 2.5 ml Bottle EA EYE SCH (20:51)
[2021-01-18] MEDS: Colchicine 0.6 MG TAB PO SCH (21:17)
[2021-01-19] MEDS: Albuterol 200 PUFF (6.7GM INHALER) INH SCH ×7 (00:18→22:32)
[2021-01-19] MEDS: ALPRAZolam 0.25 MG TAB PO PRN ×2 (02:57→20:00)
[2021-01-19] MEDS: Morphine 2 MG/ML VIAL SLOW IVP PRN ×3 (05:49→22:25)
[2021-01-19] MEDS: Polyethylene Glycol 3350 17 GM Packet PO PRN (08:10)
[2021-01-19] MEDS: Senokot S 8.6-50 MG TAB PO SCH ×2 (08:10→20:00)
[2021-01-19] MEDS: Enoxaparin Sodium 40 MG/0.4 ML SYRINGE SC SCH ×2 (08:10→20:01)
[2021-01-19] MEDS: Mometasone 200 MCG/Formoterol 5 MCG 120 PUFF INHALER INH SCH ×2 (08:11→18:22)
[2021-01-19] MEDS: Dexamethasone 4 mg/ml Vial SLOW IVP SCH (08:11)
[2021-01-19] MEDS: Colchicine 0.6 MG TAB PO SCH ×2 (08:11→20:00)
[2021-01-19] MEDS: Losartan 25 MG TAB PO SCH (08:11)
[2021-01-19 11:20] LABS: Bilirubin Negative (Negative); Blood, Urine Negative (Negative); Clarity Extra Turbid (Clear); Glucose, Urine (Dipstick) Normal (Negative); Ketone, Urine Negative (Negative); Leukocyte Negative Leu/uL (Negative); Nitrite Negative (Negative); Protein, Urine (Dipstick) Negative (Neg-Trace); RBC/HPF 0-3 HPF (0-3); Specific Gravity, Urine 1.023 (1.002-1.036); Squamous Epithelial None Seen HPF (0-3); Urobilinogen Normal mg/dL (Less than 2); WBC/HPF 0-3 HPF (0-3); pH, Urine 5.5 (5.0-9.0)
[2021-01-19 11:21] LABS: Bacteria/HPF Rare-Few HPF (None Seen); Urine Culture Reflex No No
[2021-01-19] MEDS: fentaNYL 50 mcg/hour Patch TD SCH (14:10)
[2021-01-19] MEDS: HYDROcodone/Acetaminophen 5/325 mg Tablet PO PRN (17:17)
[2021-01-19] MEDS: Latanoprost 0.005% Ophth Soln 2.5 ml Bottle EA EYE SCH (20:03)
[2021-01-20] MEDS: Albuterol 200 PUFF (6.7GM INHALER) INH SCH ×6 (02:02→21:56)
[2021-01-20] MEDS: ALPRAZolam 0.25 MG TAB PO PRN ×3 (03:43→20:15)
[2021-01-20 04:32] LABS: Band 2 % (5-11); Hemoglobin 12.8 g/dL (12.0-16.0); Lymphocytes 17 % (21-51); MDiff Complete? YES; Mean Corpuscular HGB CONC 33.2 g/dL (32.0-36.0); Mean Corpuscular Volume 87.4 fL (78.0-98.0); Mean Platelet Volume 9.9 fL (7.4-10.4); Monocytes 6 % (0-10); Neutrophil 73 % (42-75); Nucleated RBC 1 % (0); Platelet Count 152 thou/uL (130-400); Platelet Morphology Comment Appears Adequate; RBC Distribution Width 13.5 % (11.5-14.5); RBC Morphology Normal; Reactive Lymphocytes 2 % (0-10); Red Blood Cell (RBC) Count 4.42 mill/uL (4.20-5.40); White Blood Cell (WBC) Count 13.9 thou/uL (4.8-10.8)
[2021-01-20 04:46] LABS: ALT (SGPT) 56 U/L (8-55); AST (SGOT) 26 U/L (5-34); Albumin 2.7 g/dL (3.4-4.8); Alkaline Phosphatase 105 U/L (40-110); Anion Gap 12 mmol/L (10-20); BUN (Urea Nitrogen) 40 mg/dL (9.8-20.1); Bilirubin, Total 0.7 mg/dL (0.2-1.2); Calc. Creatinine Clearance 91 mL/min (70-130); Calcium 8.9 mg/dL (7.8-10.44); Carbon Dioxide 24 mmol/L (23-31); Chloride 105 mmol/L (98-107); Globulin 3.1 g/dL (2.4-3.5); Glucose 83 mg/dL (83-110); Potassium 3.9 mmol/L (3.5-5.1); Protein, Total 5.8 g/dL (5.8-8.1); Sodium 137 mmol/L (136-145)
[2021-01-20] MEDS: Morphine 2 MG/ML VIAL SLOW IVP PRN ×3 (05:13→17:29)
[2021-01-20] MEDS: Senokot S 8.6-50 MG TAB PO SCH ×2 (09:07→20:15)
[2021-01-20] MEDS: Colchicine 0.6 MG TAB PO SCH ×2 (09:07→20:15)
[2021-01-20] MEDS: Losartan 25 MG TAB PO SCH (09:07)
[2021-01-20] MEDS: Dexamethasone 4 mg/ml Vial SLOW IVP SCH (09:08)
[2021-01-20] MEDS: Enoxaparin Sodium 40 MG/0.4 ML SYRINGE SC SCH ×2 (09:08→20:16)
[2021-01-20] MEDS: Mometasone 200 MCG/Formoterol 5 MCG 120 PUFF INHALER INH SCH ×2 (09:08→18:23)
[2021-01-20] MEDS ORDERED: Morphine 2 MG/ML VIAL SLOW IVP SCH (18:15)
[2021-01-20] MEDS: Latanoprost 0.005% Ophth Soln 2.5 ml Bottle EA EYE SCH (20:22)
[2021-01-21] MEDS: Albuterol 200 PUFF (6.7GM INHALER) INH SCH ×5 (03:00→23:31)
[2021-01-21] MEDS: ALPRAZolam 0.25 MG TAB PO PRN ×2 (03:13→22:40)
[2021-01-21] MEDS: Dexamethasone 4 mg/ml Vial SLOW IVP SCH (10:03)
[2021-01-21] MEDS: Enoxaparin Sodium 40 MG/0.4 ML SYRINGE SC SCH ×2 (10:04→21:31)
[2021-01-21] MEDS: Senokot S 8.6-50 MG TAB PO SCH ×2 (10:04→21:30)
[2021-01-21] MEDS: Losartan 25 MG TAB PO SCH (10:04)
[2021-01-21] MEDS: Colchicine 0.6 MG TAB PO SCH ×2 (10:04→11:04)
[2021-01-21] MEDS: Mometasone 200 MCG/Formoterol 5 MCG 120 PUFF INHALER INH SCH ×2 (10:06→15:49)
[2021-01-21] MEDS ORDERED: Polyethylene Glycol 3350 17 GM Packet PO SCH (11:00)
[2021-01-21] MEDS: HYDROcodone/Acetaminophen 5/325 mg Tablet PO PRN (13:04)
[2021-01-21] MEDS: Morphine 2 MG/ML VIAL SLOW IVP PRN (21:00)
[2021-01-21] MEDS: Polyethylene Glycol 3350 17 GM Packet PO PRN (21:31)
[2021-01-21] MEDS: Latanoprost 0.005% Ophth Soln 2.5 ml Bottle EA EYE SCH (21:34)
[2021-01-22] MEDS: HYDROcodone/Acetaminophen 5/325 mg Tablet PO PRN ×2 (01:33→09:38)
[2021-01-22] MEDS: Albuterol 200 PUFF (6.7GM INHALER) INH SCH ×6 (02:23→22:24)
[2021-01-22 04:01] LABS: Anion Gap 13 mmol/L (10-20); BUN (Urea Nitrogen) 30 mg/dL (9.8-20.1); CRP (Inflammatory) 8.07 mg/dL (= or < 0.5); Calc. Creatinine Clearance 98 mL/min (70-130); Calcium 8.6 mg/dL (7.8-10.44); Carbon Dioxide 23 mmol/L (23-31); Chloride 108 mmol/L (98-107); Glucose 94 mg/dL (83-110); Potassium 3.5 mmol/L (3.5-5.1); Sodium 140 mmol/L (136-145)
[2021-01-22 04:14] LABS: Band 9 % (5-11); Hemoglobin 11.8 g/dL (12.0-16.0); Lymphocytes 5 % (21-51); MDiff Complete? YES; Mean Corpuscular HGB CONC 31.8 g/dL (32.0-36.0); Mean Corpuscular Volume 87.9 fL (78.0-98.0); Mean Platelet Volume 10.1 fL (7.4-10.4); Monocytes 4 % (0-10); Neutrophil 82 % (42-75); Platelet Count 140 thou/uL (130-400); Platelet Morphology Comment Appears Adequate; RBC Distribution Width 13.5 % (11.5-14.5); RBC Morphology Normal; Red Blood Cell (RBC) Count 4.21 mill/uL (4.20-5.40); White Blood Cell (WBC) Count 13.4 thou/uL (4.8-10.8)
[2021-01-22] MEDS: Mometasone 200 MCG/Formoterol 5 MCG 120 PUFF INHALER INH SCH ×2 (06:30→19:19)
[2021-01-22] MEDS: Morphine 2 MG/ML VIAL SLOW IVP PRN ×3 (07:35→21:34)
[2021-01-22] MEDS: Enoxaparin Sodium 40 MG/0.4 ML SYRINGE SC SCH ×2 (09:36→21:36)
[2021-01-22] MEDS: Dexamethasone 4 mg/ml Vial SLOW IVP SCH (09:37)
[2021-01-22] MEDS: Senokot S 8.6-50 MG TAB PO SCH ×2 (09:38→21:37)
[2021-01-22] MEDS: Colchicine 0.6 MG TAB PO SCH ×2 (09:38→21:36)
[2021-01-22] MEDS: Losartan 25 MG TAB PO SCH (09:39)
[2021-01-22] MEDS: fentaNYL 50 mcg/hour Patch TD SCH (13:18)
[2021-01-22] MEDS: ALPRAZolam 0.25 MG TAB PO PRN (17:57)
[2021-01-22] MEDS: Latanoprost 0.005% Ophth Soln 2.5 ml Bottle EA EYE SCH (21:38)
[2021-01-23] MEDS: Albuterol 200 PUFF (6.7GM INHALER) INH SCH ×5 (03:39→19:36)
[2021-01-23] MEDS: Morphine 2 MG/ML VIAL SLOW IVP PRN ×3 (04:55→18:22)
[2021-01-23] MEDS: HYDROcodone/Acetaminophen 5/325 mg Tablet PO PRN ×4 (07:42→20:21)
[2021-01-23] MEDS: Dexamethasone 4 mg/ml Vial SLOW IVP SCH (07:43)
[2021-01-23] MEDS: Enoxaparin Sodium 40 MG/0.4 ML SYRINGE SC SCH ×2 (07:44→20:21)
[2021-01-23] MEDS: Losartan 25 MG TAB PO SCH (07:44)
[2021-01-23] MEDS: Senokot S 8.6-50 MG TAB PO SCH ×2 (07:45→20:23)
[2021-01-23] MEDS: Colchicine 0.6 MG TAB PO SCH ×2 (07:45→20:23)
[2021-01-23] MEDS: Mometasone 200 MCG/Formoterol 5 MCG 120 PUFF INHALER INH SCH ×2 (13:31→19:37)
[2021-01-23] MEDS: Latanoprost 0.005% Ophth Soln 2.5 ml Bottle EA EYE SCH (20:23)
[2021-01-23] MEDS: ALPRAZolam 0.25 MG TAB PO PRN ×2 (20:29)
[2021-01-24] MEDS: Morphine 2 MG/ML VIAL SLOW IVP PRN ×4 (00:10→20:46)
[2021-01-24] MEDS: Albuterol 200 PUFF (6.7GM INHALER) INH SCH ×6 (06:17→22:38)
[2021-01-24] MEDS: Mometasone 200 MCG/Formoterol 5 MCG 120 PUFF INHALER INH SCH ×2 (08:10→18:47)
[2021-01-24] MEDS: Enoxaparin Sodium 40 MG/0.4 ML SYRINGE SC SCH ×2 (09:28→20:46)
[2021-01-24] MEDS: Colchicine 0.6 MG TAB PO SCH ×2 (09:32→20:46)
[2021-01-24] MEDS: Dexamethasone 4 mg/ml Vial SLOW IVP SCH (09:32)
[2021-01-24] MEDS: Senokot S 8.6-50 MG TAB PO SCH ×2 (09:32→20:45)
[2021-01-24] MEDS: Losartan 25 MG TAB PO SCH (09:32)
[2021-01-24] MEDS: HYDROcodone/Acetaminophen 5/325 mg Tablet PO PRN ×2 (12:06→17:54)
[2021-01-24] MEDS: Latanoprost 0.005% Ophth Soln 2.5 ml Bottle EA EYE SCH (20:46)
[2021-01-24] MEDS: ALPRAZolam 0.25 MG TAB PO PRN (20:46)
[2021-01-25] MEDS: Albuterol 200 PUFF (6.7GM INHALER) INH SCH ×7 (02:55→22:06)
[2021-01-25] MEDS: ALPRAZolam 0.25 MG TAB PO PRN ×3 (03:55→23:51)
[2021-01-25 04:18] LABS: #Eosinphils 0.2 thou/uL (0.0-0.7); #Neutrophils 11.2 thou/uL (1.40-6.50); %Basophils 0.1 % (0.0-1.0); %Eosinophils 1.7 % (0.0-10.0); %Lymphocytes 7.4 % (21.0-51.0); %Monocytes 7.4 % (0.0-10.0); %Neutrophils 83.5 % (42.0-75.0); Hemoglobin 13.3 g/dL (12.0-16.0); Mean Corpuscular HGB CONC 31.6 g/dL (32.0-36.0); Mean Corpuscular Volume 88.6 fL (78.0-98.0); Mean Platelet Volume 9.8 fL (7.4-10.4); Platelet Count 141 thou/uL (130-400); RBC Distribution Width 14.3 % (11.5-14.5); Red Blood Cell (RBC) Count 4.75 mill/uL (4.20-5.40); White Blood Cell (WBC) Count 13.5 thou/uL (4.8-10.8)
[2021-01-25 04:42] LABS: ALT (SGPT) 81 U/L (8-55); AST (SGOT) 37 U/L (5-34); Albumin 2.8 g/dL (3.4-4.8); Alkaline Phosphatase 190 U/L (40-110); Anion Gap 17 mmol/L (10-20); BUN (Urea Nitrogen) 33 mg/dL (9.8-20.1); Bilirubin, Total 0.5 mg/dL (0.2-1.2); CRP (Inflammatory) 13.34 mg/dL (= or < 0.5); Calc. Creatinine Clearance 102 mL/min (70-130); Calcium 8.9 mg/dL (7.8-10.44); Carbon Dioxide 21 mmol/L (23-31); Chloride 108 mmol/L (98-107); Globulin 3.1 g/dL (2.4-3.5); Glucose 87 mg/dL (83-110); Potassium 3.3 mmol/L (3.5-5.1); Protein, Total 5.9 g/dL (5.8-8.1); Sodium 143 mmol/L (136-145)
[2021-01-25] MEDS: Mometasone 200 MCG/Formoterol 5 MCG 120 PUFF INHALER INH SCH ×2 (08:32→19:21)
[2021-01-25] MEDS: Colchicine 0.6 MG TAB PO SCH ×2 (09:51→20:48)
[2021-01-25] MEDS: Losartan 25 MG TAB PO SCH (09:51)
[2021-01-25] MEDS: Senokot S 8.6-50 MG TAB PO SCH ×2 (09:51→20:49)
[2021-01-25] MEDS: Enoxaparin Sodium 40 MG/0.4 ML SYRINGE SC SCH ×2 (09:52→20:48)
[2021-01-25] MEDS: Morphine 2 MG/ML VIAL SLOW IVP PRN ×3 (09:52→20:58)
[2021-01-25] MEDS: Dexamethasone 4 mg/ml Vial SLOW IVP SCH (09:52)
[2021-01-25] MEDS: Gabapentin 300 MG CAP PO SCH ×2 (14:01→20:50)
[2021-01-25] MEDS: fentaNYL 50 mcg/hour Patch TD SCH (16:20)
[2021-01-25] MEDS: Latanoprost 0.005% Ophth Soln 2.5 ml Bottle EA EYE SCH (20:49)
[2021-01-26] MEDS: Morphine 2 MG/ML VIAL SLOW IVP PRN ×4 (02:35→22:07)
[2021-01-26] MEDS ORDERED: Gabapentin 100 MG CAP PO SCH (09:00)
[2021-01-26] MEDS: Enoxaparin Sodium 40 MG/0.4 ML SYRINGE SC SCH ×2 (09:31→22:05)
[2021-01-26] MEDS: Losartan 25 MG TAB PO SCH (09:32)
[2021-01-26] MEDS: Colchicine 0.6 MG TAB PO SCH ×2 (09:32→22:05)
[2021-01-26] MEDS: Dexamethasone 4 mg/ml Vial SLOW IVP SCH (09:32)
[2021-01-26] MEDS: Senokot S 8.6-50 MG TAB PO SCH ×2 (09:33→22:05)
[2021-01-26] MEDS: Gabapentin 300 MG CAP PO SCH ×3 (09:33→22:05)
[2021-01-26] MEDS: ALPRAZolam 0.25 MG TAB PO PRN ×2 (09:57→22:17)
[2021-01-26] MEDS: HYDROcodone/Acetaminophen 5/325 mg Tablet PO PRN (09:58)
[2021-01-26] MEDS ORDERED: fentaNYL 50 mcg/hour Patch TD SCH ×2 (10:00)
[2021-01-26] MEDS: Albuterol 200 PUFF (6.7GM INHALER) INH SCH ×5 (10:42→22:40)
[2021-01-26] MEDS: Mometasone 200 MCG/Formoterol 5 MCG 120 PUFF INHALER INH SCH ×2 (10:43→22:12)
[2021-01-26] MEDS: Sodium Chloride 0.9% 1,000 ML IV SCH (19:15)
[2021-01-26] MEDS: Latanoprost 0.005% Ophth Soln 2.5 ml Bottle EA EYE SCH (22:06)
[2021-01-27] MEDS: Morphine 2 MG/ML VIAL SLOW IVP PRN ×4 (04:05→15:52)
[2021-01-27 04:31] LABS: #Eosinphils 0.2 thou/uL (0.0-0.7); #Lymphocytes 0.9 thou/uL (1.20-3.40); #Neutrophils 7.2 thou/uL (1.40-6.50); %Eosinophils 2.1 % (0.0-10.0); %Lymphocytes 9.9 % (21.0-51.0); %Monocytes 10.3 % (0.0-10.0); %Neutrophils 77.8 % (42.0-75.0); Hemoglobin 13.2 g/dL (12.0-16.0); Mean Corpuscular HGB CONC 32.9 g/dL (32.0-36.0); Mean Corpuscular Hemoglobin 29.8 pg (27.0-31.0); Mean Corpuscular Volume 90.4 fL (78.0-98.0); Mean Platelet Volume 9.6 fL (7.4-10.4); Platelet Count 152 thou/uL (130-400); RBC Distribution Width 14.6 % (11.5-14.5); Red Blood Cell (RBC) Count 4.45 mill/uL (4.20-5.40); White Blood Cell (WBC) Count 9.3 thou/uL (4.8-10.8)
[2021-01-27 05:01] LABS: Anion Gap 19 mmol/L (10-20); BUN (Urea Nitrogen) 42 mg/dL (9.8-20.1); Calc. Creatinine Clearance 110 mL/min (70-130); Calcium 8.6 mg/dL (7.8-10.44); Carbon Dioxide 22 mmol/L (23-31); Chloride 111 mmol/L (98-107); Glucose 88 mg/dL (83-110); Potassium 3.7 mmol/L (3.5-5.1); Sodium 148 mmol/L (136-145)
[2021-01-27] MEDS: Mometasone 200 MCG/Formoterol 5 MCG 120 PUFF INHALER INH SCH ×2 (07:13→18:56)
[2021-01-27] MEDS: Albuterol 200 PUFF (6.7GM INHALER) INH SCH ×6 (07:13→21:46)
[2021-01-27] MEDS: Gabapentin 300 MG CAP PO SCH ×3 (08:39→21:00)
[2021-01-27] MEDS: Colchicine 0.6 MG TAB PO SCH ×2 (08:39→20:59)
[2021-01-27] MEDS: Senokot S 8.6-50 MG TAB PO SCH ×2 (08:39→20:59)
[2021-01-27] MEDS: Dexamethasone 4 mg/ml Vial SLOW IVP SCH (08:39)
[2021-01-27] MEDS: Losartan 25 MG TAB PO SCH (08:41)
[2021-01-27] MEDS: Enoxaparin Sodium 40 MG/0.4 ML SYRINGE SC SCH ×2 (08:41→20:58)
[2021-01-27] MEDS: Sodium Chloride 0.9% 1,000 ML IV SCH (08:42)
[2021-01-27] MEDS: ALPRAZolam 0.25 MG TAB PO PRN (12:37)
[2021-01-27] MEDS ORDERED: Furosemide 100 MG/10 ML VIAL SLOW IVP SCH (17:15)
[2021-01-27] MEDS ORDERED: Propofol 1,000 MG/100 ML VIAL IV ONE (17:23)
[2021-01-27] MEDS ORDERED: Fentanyl CADD 100 ML ONE (17:29)
[2021-01-27] MEDS ORDERED: Norepinephrine 8 MG/0.9% NS 250 ML ONE (17:36)
[2021-01-27] MEDS ORDERED: Hydrocortisone Sod Succ/PF 100 mg/2 ml Vial ONE (17:53)
[2021-01-27] MEDS ORDERED: DISCONTINUE PREVIOUS NARCOTIC PAIN MEDICATIONS AND BENZODIAZEPINES FS SCH (18:15)
[2021-01-27] MEDS ORDERED: Fentanyl BOLUS 250 ML IVPB PRN (18:15)
[2021-01-27] MEDS ORDERED: Propofol BOLUS 1,000 MG/100 ML VIAL IV PRN (18:15)
[2021-01-27] MEDS ORDERED: Morphine 2 MG/ML VIAL SLOW IVP PRN (18:15)
[2021-01-27 18:50] LABS: Actual Bicarbonate (HCO3a) 22.4 mEq/L (22-28); Base Excess (BEa) -2.8 mEq/L (-2.0 to +3.0); CO2 Tension 40.4 mmHg (35.0-45.0); Calcium, Ionized (arterial) 1.15 mmol/L (1.12-1.30); Carboxyhemoglobin (COHb) 0.6 gm% (0.0-3.0); Hemoglobin (Hb) 10.6 g/dL (12.0-16.0); O2 Tension (PaO2), arterial 60.7 mmHg (> 70.0); Potassium - ABG Lab 3.16 mmol/L (3.70-5.30); pH, Arterial 7.36 (7.35-7.45)
[2021-01-27 18:52] LABS: Puncture Site RBR
[2021-01-27] MEDS ORDERED: Hydrocortisone Sod Succ/PF 100 mg/2 ml Vial IVP SCH (19:00)
[2021-01-27] MEDS: Lactated Ringer's 1,000 ML IV SCH (19:01)
[2021-01-28] MEDS: Albuterol 200 PUFF (6.7GM INHALER) INH SCH ×6 (01:57→21:49)
[2021-01-28] MEDS: Propofol 1,000 MG/100 ML VIAL IV PRN ×3 (04:02→18:30)
[2021-01-28] MEDS: Lorazepam 2 MG/ML VIAL SLOW IVP PRN (04:25)
[2021-01-28 05:03] LABS: Anion Gap 14 mmol/L (10-20); BUN (Urea Nitrogen) 36 mg/dL (9.8-20.1); Calc. Creatinine Clearance 119 mL/min (70-130); Carbon Dioxide 22 mmol/L (23-31); Chloride 115 mmol/L (98-107); Glucose 83 mg/dL (83-110); Potassium 3.4 mmol/L (3.5-5.1); Sodium 148 mmol/L (136-145)
[2021-01-28] MEDS: Mometasone 200 MCG/Formoterol 5 MCG 120 PUFF INHALER INH SCH ×2 (07:24→18:25)
[2021-01-28 07:53] LABS: Actual Bicarbonate (HCO3a) 23.9 mEq/L (22-28); Base Excess (BEa) 0.9 mEq/L (-2.0 to +3.0); CO2 Tension 32.4 mmHg (35.0-45.0); Calcium, Ionized (arterial) 1.18 mmol/L (1.12-1.30); Carboxyhemoglobin (COHb) 0.8 gm% (0.0-3.0); Potassium - ABG Lab 2.74 mmol/L (3.70-5.30); pH, Arterial 7.49 (7.35-7.45)
[2021-01-28 07:56] LABS: Puncture Site RRA
[2021-01-28] MEDS ORDERED: Dexamethasone 4 MG TAB PO SCH (08:00)
[2021-01-28] MEDS ORDERED: MEROPENEM 1 GM/50 ML 1 GM in Premix Bag 1 BAG IVPB SCH (09:00)
[2021-01-28] MEDS ORDERED: fentaNYL 50 mcg/hour Patch TD SCH (09:00)
[2021-01-28] MEDS: Dexamethasone 4 mg/ml Vial SLOW IVP SCH ×2 (09:03→21:28)
[2021-01-28] MEDS: Losartan 25 MG TAB PO SCH (09:03)
[2021-01-28] MEDS: Gabapentin 300 MG CAP PO SCH ×3 (09:04→21:18)
[2021-01-28] MEDS: Senokot S 8.6-50 MG TAB PO SCH ×2 (09:04→21:28)
[2021-01-28] MEDS: Colchicine 0.6 MG TAB PO SCH ×2 (09:04→21:28)
[2021-01-28] MEDS: Enoxaparin Sodium 40 MG/0.4 ML SYRINGE SC SCH ×2 (09:07→21:27)
[2021-01-28] MEDS: Lactated Ringer's 1,000 ML IV SCH ×2 (09:09→19:46)
[2021-01-28 09:22] LABS: #Eosinphils 0.1 thou/uL (0.0-0.7); #Lymphocytes 1.5 thou/uL (1.20-3.40); #Monocytes 0.8 thou/uL (0.11-0.59); #Neutrophils 6.3 thou/uL (1.40-6.50); %Basophils 0.5 % (0.0-1.0); %Eosinophils 1.3 % (0.0-10.0); %Lymphocytes 17.5 % (21.0-51.0); %Monocytes 9.1 % (0.0-10.0); %Neutrophils 71.7 % (42.0-75.0); Mean Corpuscular HGB CONC 33.3 g/dL (32.0-36.0); Mean Corpuscular Hemoglobin 29.8 pg (27.0-31.0); Mean Corpuscular Volume 89.3 fL (78.0-98.0); Mean Platelet Volume 9.5 fL (7.4-10.4); Platelet Count 146 thou/uL (130-400); RBC Distribution Width 14.2 % (11.5-14.5); Red Blood Cell (RBC) Count 3.68 mill/uL (4.20-5.40); White Blood Cell (WBC) Count 8.7 thou/uL (4.8-10.8)
[2021-01-28] MEDS ORDERED: Meropenem 1 GM in Sodium Chloride 0.9% 100 ML IVPB SCH (14:00)
[2021-01-28] MEDS: MEROPENEM 1 GM/50 ML 1 GM in Premix Bag 1 BAG IVPB SCH (16:26)
[2021-01-29] MEDS: Propofol 1,000 MG/100 ML VIAL IV PRN ×2 (00:20→18:36)
[2021-01-29] MEDS: MEROPENEM 1 GM/50 ML 1 GM in Premix Bag 1 BAG IVPB SCH ×3 (00:57→17:57)
[2021-01-29] MEDS ORDERED: Fentanyl CADD 100 ML ONE (01:20)
[2021-01-29] MEDS: Fentanyl CADD 100 ML IV SCH (01:24)
[2021-01-29] MEDS: Albuterol 200 PUFF (6.7GM INHALER) INH SCH ×6 (02:07→22:02)
[2021-01-29] MEDS: Norepinephrine 8 MG/0.9% NS 250 ML IVPB SCH ×2 (03:31→20:56)
[2021-01-29] MEDS: Lorazepam 2 MG/ML VIAL SLOW IVP PRN (03:54)
[2021-01-29 04:00] LABS: Anion Gap 15 mmol/L (10-20); BUN (Urea Nitrogen) 39 mg/dL (9.8-20.1); Calc. Creatinine Clearance 96 mL/min (70-130); Calcium 8.4 mg/dL (7.8-10.44); Carbon Dioxide 23 mmol/L (23-31); Chloride 113 mmol/L (98-107); Glucose 73 mg/dL (83-110); Potassium 3.6 mmol/L (3.5-5.1); Sodium 147 mmol/L (136-145)
[2021-01-29 04:01] LABS: #Eosinphils 0.1 thou/uL (0.0-0.7); #Monocytes 0.6 thou/uL (0.11-0.59); %Eosinophils 2.1 % (0.0-10.0); %Monocytes 8.5 % (0.0-10.0); %Neutrophils 74.5 % (42.0-75.0); Hemoglobin 11.1 g/dL (12.0-16.0); Mean Corpuscular HGB CONC 31.7 g/dL (32.0-36.0); Mean Corpuscular Hemoglobin 28.2 pg (27.0-31.0); Mean Corpuscular Volume 88.9 fL (78.0-98.0); Platelet Count 112 thou/uL (130-400); Platelet Morphology Comment Appears Decreased; RBC Distribution Width 14.4 % (11.5-14.5); RBC Morphology Normal; Red Blood Cell (RBC) Count 3.94 mill/uL (4.20-5.40); White Blood Cell (WBC) Count 6.7 thou/uL (4.8-10.8)
[2021-01-29] MEDS: Mometasone 200 MCG/Formoterol 5 MCG 120 PUFF INHALER INH SCH ×2 (07:12→18:53)
[2021-01-29 07:15] LABS: Base Excess (BEa) -0.1 mEq/L (-2.0 to +3.0); CO2 Tension 37.2 mmHg (35.0-45.0); Calcium, Ionized (arterial) 1.18 mmol/L (1.12-1.30); Carboxyhemoglobin (COHb) 0.8 gm% (0.0-3.0); Hemoglobin (Hb) 12.1 g/dL (12.0-16.0); Potassium - ABG Lab 3.19 mmol/L (3.70-5.30); pH, Arterial 7.43 (7.35-7.45)
[2021-01-29 07:19] LABS: O2 Tension (PaO2), arterial 54.5 mmHg (> 70.0); Puncture Site RRA
[2021-01-29] MEDS: Lactated Ringer's 1,000 ML IV SCH (08:54)
[2021-01-29] MEDS: Enoxaparin Sodium 40 MG/0.4 ML SYRINGE SC SCH ×2 (08:55→20:41)
[2021-01-29] MEDS: Dexamethasone 4 mg/ml Vial SLOW IVP SCH ×2 (08:56→20:41)
[2021-01-29] MEDS: Losartan 25 MG TAB PO SCH (08:56)
[2021-01-29] MEDS: Senokot S 8.6-50 MG TAB PO SCH ×2 (08:56→20:40)
[2021-01-29] MEDS: Colchicine 0.6 MG TAB PO SCH ×2 (08:56→20:40)
[2021-01-29] MEDS: Gabapentin 300 MG CAP PO SCH ×3 (08:56→20:40)
[2021-01-29] MEDS ORDERED: Pantoprazole 40 MG GRANULES PACKET PER TUBE SCH (10:00)
[2021-01-29] MEDS: Sodium Chloride 0.9% 1,000 ML IV SCH ×2 (10:30→23:45)
[2021-01-30] MEDS: MEROPENEM 1 GM/50 ML 1 GM in Premix Bag 1 BAG IVPB SCH ×3 (01:20→16:06)
[2021-01-30] MEDS: Albuterol 200 PUFF (6.7GM INHALER) INH SCH ×6 (02:26→23:27)
[2021-01-30] MEDS ORDERED: Fentanyl CADD 100 ML ONE (04:11)
[2021-01-30 04:18] LABS: Anion Gap 15 mmol/L (10-20); BUN (Urea Nitrogen) 27 mg/dL (9.8-20.1); Calc. Creatinine Clearance 133 mL/min (70-130); Carbon Dioxide 22 mmol/L (23-31); Chloride 111 mmol/L (98-107); Glucose 111 mg/dL (83-110); Potassium 3.4 mmol/L (3.5-5.1); Sodium 145 mmol/L (136-145)
[2021-01-30] MEDS: Fentanyl CADD 100 ML IV SCH (04:19)
[2021-01-30] MEDS: Propofol 1,000 MG/100 ML VIAL IV PRN ×3 (05:03→23:28)
[2021-01-30 05:30] LABS: Band 13 % (5-11); Hemoglobin 10.9 g/dL (12.0-16.0); Lymphocytes 11 % (21-51); MDiff Complete? YES; Mean Corpuscular HGB CONC 32.5 g/dL (32.0-36.0); Mean Corpuscular Hemoglobin 28.9 pg (27.0-31.0); Mean Corpuscular Volume 88.9 fL (78.0-98.0); Mean Platelet Volume 9.9 fL (7.4-10.4); Metamyelocyte 1 % (0-0); Monocytes 4 % (0-10); Myelocyte 3 % (0-0); Neutrophil 67 % (42-75); Platelet Count 155 thou/uL (130-400); Platelet Morphology Comment Appears Adequate; RBC Distribution Width 14.6 % (11.5-14.5); RBC Morphology Normal; Reactive Lymphocytes 1 % (0-10); Red Blood Cell (RBC) Count 3.77 mill/uL (4.20-5.40); White Blood Cell (WBC) Count 8.5 thou/uL (4.8-10.8)
[2021-01-30] MEDS: Mometasone 200 MCG/Formoterol 5 MCG 120 PUFF INHALER INH SCH ×2 (07:14→18:46)
[2021-01-30 07:54] LABS: Actual Bicarbonate (HCO3a) 21.3 mEq/L (22-28); Base Excess (BEa) -2.4 mEq/L (-2.0 to +3.0); Calcium, Ionized (arterial) 1.13 mmol/L (1.12-1.30); Carboxyhemoglobin (COHb) 0.6 gm% (0.0-3.0); Hemoglobin (Hb) 12.3 g/dL (12.0-16.0); Potassium - ABG Lab 3.17 mmol/L (3.70-5.30); pH, Arterial 7.43 (7.35-7.45)
[2021-01-30 07:57] LABS: O2 Tension (PaO2), arterial 59.3 mmHg (> 70.0); Puncture Site RRA
[2021-01-30] MEDS: Pantoprazole 40 MG GRANULES PACKET PER TUBE SCH (08:06)
[2021-01-30] MEDS: Senokot S 8.6-50 MG TAB PO SCH ×2 (08:06→21:07)
[2021-01-30] MEDS: Colchicine 0.6 MG TAB PO SCH ×2 (08:06→21:07)
[2021-01-30] MEDS: Gabapentin 300 MG CAP PO SCH ×3 (08:06→21:07)
[2021-01-30] MEDS: Enoxaparin Sodium 40 MG/0.4 ML SYRINGE SC SCH ×2 (08:07→21:07)
[2021-01-30] MEDS: Dexamethasone 4 mg/ml Vial SLOW IVP SCH ×2 (08:07→21:07)
[2021-01-30] MEDS: Losartan 25 MG TAB PO SCH (08:07)
[2021-01-30] MEDS: Sodium Chloride 0.9% 1,000 ML IV SCH ×2 (21:08→23:36)
[2021-01-31] MEDS: Albuterol 200 PUFF (6.7GM INHALER) INH SCH ×6 (02:30→22:23)
[2021-01-31] MEDS ORDERED: Fentanyl CADD 100 ML ONE ×2 (05:29→23:59)
[2021-01-31] MEDS: Mometasone 200 MCG/Formoterol 5 MCG 120 PUFF INHALER INH SCH ×2 (07:25→19:24)
[2021-01-31] MEDS: MEROPENEM 1 GM/50 ML 1 GM in Premix Bag 1 BAG IVPB SCH ×3 (08:13→16:30)
[2021-01-31 08:43] LABS: Actual Bicarbonate (HCO3a) 26.1 mEq/L (22-28); CO2 Tension 38.8 mmHg (35.0-45.0); Calcium, Ionized (arterial) 1.13 mmol/L (1.12-1.30); Carboxyhemoglobin (COHb) 1.2 gm% (0.0-3.0); Potassium - ABG Lab 2.97 mmol/L (3.70-5.30); pH, Arterial 7.45 (7.35-7.45)
[2021-01-31 08:44] LABS: O2 Tension (PaO2), arterial 44.2 mmHg (> 70.0); Puncture Site RRA
[2021-01-31] MEDS: Propofol 1,000 MG/100 ML VIAL IV PRN ×2 (09:01→16:30)
[2021-01-31] MEDS: Pantoprazole 40 MG GRANULES PACKET PER TUBE SCH (10:00)
[2021-01-31] MEDS: Dexamethasone 4 mg/ml Vial SLOW IVP SCH ×2 (10:00→21:31)
[2021-01-31] MEDS: Losartan 25 MG TAB PO SCH (10:00)
[2021-01-31] MEDS: Enoxaparin Sodium 40 MG/0.4 ML SYRINGE SC SCH ×2 (10:00→21:31)
[2021-01-31] MEDS: Colchicine 0.6 MG TAB PO SCH ×2 (10:00→21:35)
[2021-01-31] MEDS: Senokot S 8.6-50 MG TAB PO SCH ×2 (10:00→21:32)
[2021-01-31] MEDS: Gabapentin 300 MG CAP PO SCH ×3 (10:00→21:30)
[2021-01-31 11:07] LABS: Anion Gap 15 mmol/L (10-20); BUN (Urea Nitrogen) 22 mg/dL (9.8-20.1); Calc. Creatinine Clearance 160 mL/min (70-130); Calcium 7.8 mg/dL (7.8-10.44); Carbon Dioxide 22 mmol/L (23-31); Chloride 110 mmol/L (98-107); Glucose 114 mg/dL (83-110); Potassium 3.3 mmol/L (3.5-5.1); Sodium 144 mmol/L (136-145)
[2021-01-31 12:29] LABS: %Neutrophils 83.8 % (42.0-75.0); Hemoglobin 11.1 g/dL (12.0-16.0); Mean Corpuscular Hemoglobin 28.5 pg (27.0-31.0); Mean Corpuscular Volume 89.1 fL (78.0-98.0); Mean Platelet Volume 9.6 fL (7.4-10.4); Platelet Count 150 thou/uL (130-400); RBC Distribution Width 14.4 % (11.5-14.5); Red Blood Cell (RBC) Count 3.91 mill/uL (4.20-5.40); White Blood Cell (WBC) Count 7.5 thou/uL (4.8-10.8)
[2021-01-31 12:30] LABS: #Eosinphils 0.1 thou/uL (0.0-0.7); #Lymphocytes 0.6 thou/uL (1.20-3.40); #Monocytes 0.5 thou/uL (0.11-0.59); #Neutrophils 6.3 thou/uL (1.40-6.50); %Basophils 0.7 % (0.0-1.0); %Eosinophils 0.7 % (0.0-10.0); %Lymphocytes 8.1 % (21.0-51.0); %Monocytes 6.8 % (0.0-10.0)
[2021-01-31] MEDS ORDERED: Metoclopramide HCl 10 MG/2 ML VIAL IVP SCH (13:30)
[2021-01-31] MEDS ORDERED: Electrolyte Replacement Protocol FS PRN (13:45)
[2021-01-31] MEDS ORDERED: Potassium Chloride 40 MEQ in Sodium Chloride 0.9% 250 ML 250 ML IVPB SCH (15:00)
[2021-01-31] MEDS ORDERED: Furosemide 40 MG/4 ML VIAL SLOW IVP SCH (15:00)
[2021-01-31] MEDS: Sodium Chloride 0.9% 1,000 ML IV SCH (16:53)
[2021-01-31] MEDS ORDERED: Norepinephrine 8 MG/0.9% NS 250 ML ONE (18:51)
[2021-01-31] MEDS: Norepinephrine 8 MG/0.9% NS 250 ML IVPB SCH (19:00)
[2021-01-31] MEDS: Metoclopramide 10 MG/10 ML UDCUP PO SCH (21:31)
[2021-02-01] MEDS: Fentanyl CADD 100 ML IV SCH ×2 (00:06→15:13)
[2021-02-01] MEDS: MEROPENEM 1 GM/50 ML 1 GM in Premix Bag 1 BAG IVPB SCH ×3 (02:42→17:16)
[2021-02-01] MEDS: Albuterol 200 PUFF (6.7GM INHALER) INH SCH ×6 (02:44→22:48)
[2021-02-01 07:58] LABS: Anion Gap 14 mmol/L (10-20); BUN (Urea Nitrogen) 35 mg/dL (9.8-20.1); Calc. Creatinine Clearance 147 mL/min (70-130); Calcium 7.9 mg/dL (7.8-10.44); Carbon Dioxide 26 mmol/L (23-31); Chloride 108 mmol/L (98-107); Glucose 120 mg/dL (83-110); Potassium 3.6 mmol/L (3.5-5.1); Sodium 144 mmol/L (136-145)
[2021-02-01] MEDS: Mometasone 200 MCG/Formoterol 5 MCG 120 PUFF INHALER INH SCH ×2 (08:03→19:11)
[2021-02-01 08:16] LABS: Hemoglobin 10.8 g/dL (12.0-16.0); Mean Corpuscular HGB CONC 31.5 g/dL (32.0-36.0); Mean Corpuscular Hemoglobin 28.1 pg (27.0-31.0); Mean Corpuscular Volume 89.1 fL (78.0-98.0); Mean Platelet Volume 10.3 fL (7.4-10.4); Platelet Count 216 thou/uL (130-400); RBC Distribution Width 14.9 % (11.5-14.5); Red Blood Cell (RBC) Count 3.84 mill/uL (4.20-5.40); White Blood Cell (WBC) Count 11.4 thou/uL (4.8-10.8)
[2021-02-01 08:19] LABS: Actual Bicarbonate (HCO3a) 28.7 mEq/L (22-28); Base Excess (BEa) 4.4 mEq/L (-2.0 to +3.0); CO2 Tension 41.4 mmHg (35.0-45.0); Calcium, Ionized (arterial) 1.13 mmol/L (1.12-1.30); Carboxyhemoglobin (COHb) 1.1 gm% (0.0-3.0); Hemoglobin (Hb) 11.2 g/dL (12.0-16.0); Potassium - ABG Lab 3.13 mmol/L (3.70-5.30); pH, Arterial 7.46 (7.35-7.45)
[2021-02-01 08:22] LABS: O2 Tension (PaO2), arterial 58.6 mmHg (> 70.0); Puncture Site RRA
[2021-02-01] MEDS ORDERED: Furosemide 40 MG/4 ML VIAL SLOW IVP SCH (09:00)
[2021-02-01] MEDS: Metoclopramide 10 MG/10 ML UDCUP PO SCH ×4 (09:06→23:10)
[2021-02-01] MEDS: Senokot S 8.6-50 MG TAB PO SCH ×2 (09:06→23:10)
[2021-02-01] MEDS: Dexamethasone 4 mg/ml Vial SLOW IVP SCH ×2 (09:07→21:55)
[2021-02-01] MEDS: Enoxaparin Sodium 40 MG/0.4 ML SYRINGE SC SCH ×2 (09:11→21:55)
[2021-02-01] MEDS: Pantoprazole 40 MG GRANULES PACKET PER TUBE SCH (09:11)
[2021-02-01] MEDS: Gabapentin 300 MG CAP PO SCH ×3 (09:12→23:08)
[2021-02-01] MEDS: Colchicine 0.6 MG TAB PO SCH ×2 (09:17→23:07)
[2021-02-01] MEDS: Losartan 25 MG TAB PO SCH (09:29)
[2021-02-01 10:25] LABS: Anisocytosis SLIGHT = 6-15 cells (100X) (0-5/hpf); Band 6 % (5-11); Lymphocytes 13 % (21-51); MDiff Complete? YES; Metamyelocyte 1 % (0-0); Monocytes 19 % (0-10); Neutrophil 61 % (42-75); Nucleated RBC 3 % (0); Platelet Morphology Comment Appears Adequate; Polychromasia SLIGHT = 2-3 cells (100X) (0-2/hpf)
[2021-02-01] MEDS: Propofol 1,000 MG/100 ML VIAL IV PRN ×2 (11:24→17:12)
[2021-02-01] MEDS ORDERED: Fentanyl CADD 100 ML ONE (15:06)
[2021-02-02] MEDS: MEROPENEM 1 GM/50 ML 1 GM in Premix Bag 1 BAG IVPB SCH ×3 (02:16→17:14)
[2021-02-02] MEDS: Albuterol 200 PUFF (6.7GM INHALER) INH SCH ×6 (02:57→22:54)
[2021-02-02] MEDS ORDERED: Fentanyl CADD 100 ML ONE ×2 (06:21→23:11)
[2021-02-02] MEDS: Fentanyl CADD 100 ML IV SCH ×2 (06:31→23:15)
[2021-02-02] MEDS: Mometasone 200 MCG/Formoterol 5 MCG 120 PUFF INHALER INH SCH ×2 (07:47→19:19)
[2021-02-02 08:07] LABS: Actual Bicarbonate (HCO3a) 32.4 mEq/L (22-28); Base Excess (BEa) 7.7 mEq/L (-2.0 to +3.0); CO2 Tension 46.3 mmHg (35.0-45.0); Calcium, Ionized (arterial) 1.14 mmol/L (1.12-1.30); Carboxyhemoglobin (COHb) 1.4 gm% (0.0-3.0); Hemoglobin (Hb) 11.1 g/dL (12.0-16.0); O2 Tension (PaO2), arterial 45.3 mmHg (> 70.0); Potassium - ABG Lab 3.09 mmol/L (3.70-5.30); pH, Arterial 7.46 (7.35-7.45)
[2021-02-02 08:08] LABS: Puncture Site RA
[2021-02-02 08:09] LABS: ALV-art Gradient 360.275 mmHg (0-20)
[2021-02-02 08:15] LABS: Anion Gap 11 mmol/L (10-20); BUN (Urea Nitrogen) 34 mg/dL (9.8-20.1); Calc. Creatinine Clearance 145 mL/min (70-130); Calcium 8.1 mg/dL (7.8-10.44); Carbon Dioxide 31 mmol/L (23-31); Chloride 106 mmol/L (98-107); Glucose 143 mg/dL (83-110); Potassium 3.3 mmol/L (3.5-5.1); Sodium 145 mmol/L (136-145)
[2021-02-02] MEDS: Metoclopramide 10 MG/10 ML UDCUP PO SCH ×4 (08:29→20:58)
[2021-02-02] MEDS: Dexamethasone 4 mg/ml Vial SLOW IVP SCH ×2 (08:30→20:51)
[2021-02-02] MEDS: Colchicine 0.6 MG TAB PO SCH ×2 (08:30→20:51)
[2021-02-02] MEDS: Losartan 25 MG TAB PO SCH (08:31)
[2021-02-02] MEDS: Enoxaparin Sodium 40 MG/0.4 ML SYRINGE SC SCH ×2 (08:31→20:52)
[2021-02-02] MEDS: Gabapentin 300 MG CAP PO SCH ×3 (08:31→20:53)
[2021-02-02] MEDS: Pantoprazole 40 MG GRANULES PACKET PER TUBE SCH (08:32)
[2021-02-02] MEDS: Senokot S 8.6-50 MG TAB PO SCH ×2 (08:32→20:55)
[2021-02-02] MEDS ORDERED: Potassium Chloride 40 MEQ in Sodium Chloride 0.9% 250 ML 250 ML IVPB SCH (09:00)
[2021-02-02 09:04] LABS: Hemoglobin 10.9 g/dL (12.0-16.0); Mean Corpuscular HGB CONC 32.9 g/dL (32.0-36.0); Mean Corpuscular Hemoglobin 29.4 pg (27.0-31.0); Mean Corpuscular Volume 89.2 fL (78.0-98.0); Mean Platelet Volume 9.9 fL (7.4-10.4); Platelet Count 200 thou/uL (130-400); RBC Distribution Width 14.7 % (11.5-14.5); Red Blood Cell (RBC) Count 3.72 mill/uL (4.20-5.40); White Blood Cell (WBC) Count 11.7 thou/uL (4.8-10.8)
[2021-02-02 09:05] LABS: Band 14 % (5-11); Eosinophils 1 % (0-10); Lymphocytes 9 % (21-51); MDiff Complete? YES; Metamyelocyte 4 % (0-0); Monocytes 3 % (0-10); Myelocyte 7 % (0-0); Neutrophil 62 % (42-75); Nucleated RBC 2 % (0); Platelet Morphology Comment Appears Adequate; RBC Morphology Normal
[2021-02-02] MEDS: Norepinephrine 8 MG/0.9% NS 250 ML IVPB SCH (16:36)
[2021-02-02] MEDS: Propofol 1,000 MG/100 ML VIAL IV PRN (17:15)
[2021-02-03] MEDS: MEROPENEM 1 GM/50 ML 1 GM in Premix Bag 1 BAG IVPB SCH ×3 (01:30→17:47)
[2021-02-03] MEDS: Latanoprost 0.005% Ophth Soln 2.5 ml Bottle EA EYE SCH ×3 (02:02→21:56)
[2021-02-03] MEDS: Propofol 1,000 MG/100 ML VIAL IV PRN ×3 (02:38→22:59)
[2021-02-03] MEDS: Albuterol 200 PUFF (6.7GM INHALER) INH SCH ×6 (03:13→22:43)
[2021-02-03 04:31] LABS: Anion Gap 13 mmol/L (10-20); BUN (Urea Nitrogen) 32 mg/dL (9.8-20.1); Calc. Creatinine Clearance 155 mL/min (70-130); Calcium 8.3 mg/dL (7.8-10.44); Carbon Dioxide 27 mmol/L (23-31); Chloride 107 mmol/L (98-107); Glucose 137 mg/dL (83-110); Potassium 3.9 mmol/L (3.5-5.1); Sodium 143 mmol/L (136-145)
[2021-02-03 07:52] LABS: Hemoglobin 10.7 g/dL (12.0-16.0); Mean Corpuscular HGB CONC 32.6 g/dL (32.0-36.0); Mean Corpuscular Hemoglobin 29.1 pg (27.0-31.0); Mean Corpuscular Volume 89.2 fL (78.0-98.0); Mean Platelet Volume 9.7 fL (7.4-10.4); Platelet Count 188 thou/uL (130-400); RBC Distribution Width 15.1 % (11.5-14.5); Red Blood Cell (RBC) Count 3.67 mill/uL (4.20-5.40)
[2021-02-03 08:09] LABS: Band 15 % (5-11); Lymphocytes 13 % (21-51); MDiff Complete? YES; Metamyelocyte 5 % (0-0); Monocytes 2 % (0-10); Myelocyte 3 % (0-0); Neutrophil 62 % (42-75); Nucleated RBC 5 % (0); White Blood Cell (WBC) Count 10.6 thou/uL (4.8-10.8)
[2021-02-03] MEDS: Mometasone 200 MCG/Formoterol 5 MCG 120 PUFF INHALER INH SCH ×2 (08:20→18:51)
[2021-02-03 08:32] LABS: Actual Bicarbonate (HCO3a) 34.3 mEq/L (22-28); Base Excess (BEa) 9.8 mEq/L (-2.0 to +3.0); CO2 Tension 46.3 mmHg (35.0-45.0); Calcium, Ionized (arterial) 1.15 mmol/L (1.12-1.30); Carboxyhemoglobin (COHb) 0.9 gm% (0.0-3.0); Hemoglobin (Hb) 11.1 g/dL (12.0-16.0); Potassium - ABG Lab 3.25 mmol/L (3.70-5.30); pH, Arterial 7.49 (7.35-7.45)
[2021-02-03 08:34] LABS: ALV-art Gradient 423.075 mmHg (0-20); O2 Tension (PaO2), arterial 53.8 mmHg (> 70.0); Puncture Site RRA
[2021-02-03] MEDS: Enoxaparin Sodium 40 MG/0.4 ML SYRINGE SC SCH ×2 (09:01→21:43)
[2021-02-03] MEDS: Metoclopramide 10 MG/10 ML UDCUP PO SCH ×4 (09:01→21:40)
[2021-02-03] MEDS: Dexamethasone 4 mg/ml Vial SLOW IVP SCH ×2 (09:01→21:56)
[2021-02-03] MEDS: Colchicine 0.6 MG TAB PO SCH ×2 (09:01→21:56)
[2021-02-03] MEDS: Senokot S 8.6-50 MG TAB PO SCH ×3 (09:02→22:00)
[2021-02-03] MEDS: Gabapentin 300 MG CAP PO SCH ×3 (09:02→21:41)
[2021-02-03] MEDS: Pantoprazole 40 MG GRANULES PACKET PER TUBE SCH (09:02)
[2021-02-03] MEDS ORDERED: Lidocaine 1% w/Epinephrine 1:100K 20 ML VIAL ONE (12:09)
[2021-02-03] MEDS ORDERED: Fentanyl CADD 100 ML ONE (14:16)
[2021-02-03] MEDS: Fentanyl CADD 100 ML IV SCH (14:24)
[2021-02-04] MEDS: Albuterol 200 PUFF (6.7GM INHALER) INH SCH ×6 (02:04→22:06)
[2021-02-04] MEDS: MEROPENEM 1 GM/50 ML 1 GM in Premix Bag 1 BAG IVPB SCH ×3 (02:32→16:26)
[2021-02-04 04:21] LABS: Anion Gap 14 mmol/L (10-20); BUN (Urea Nitrogen) 29 mg/dL (9.8-20.1); Calc. Creatinine Clearance 163 mL/min (70-130); Calcium 8.6 mg/dL (7.8-10.44); Carbon Dioxide 30 mmol/L (23-31); Chloride 106 mmol/L (98-107); Glucose 176 mg/dL (83-110); Potassium 3.8 mmol/L (3.5-5.1); Sodium 146 mmol/L (136-145)
[2021-02-04 04:34] LABS: Band 11 % (5-11); Hemoglobin 10.5 g/dL (12.0-16.0); Hypochromia SLIGHT = 6-15 cells (100X) (0-5/hpf); Lymphocytes 10 % (21-51); MDiff Complete? YES; Mean Corpuscular HGB CONC 30.3 g/dL (32.0-36.0); Mean Corpuscular Hemoglobin 27.6 pg (27.0-31.0); Mean Corpuscular Volume 91.1 fL (78.0-98.0); Monocytes 12 % (0-10); Neutrophil 67 % (42-75); Platelet Count 222 thou/uL (130-400); Platelet Morphology Comment Appears Adequate; RBC Distribution Width 15.3 % (11.5-14.5); Red Blood Cell (RBC) Count 3.82 mill/uL (4.20-5.40); White Blood Cell (WBC) Count 11.8 thou/uL (4.8-10.8)
[2021-02-04] MEDS: Propofol 1,000 MG/100 ML VIAL IV PRN ×3 (05:13→21:06)
[2021-02-04] MEDS ORDERED: Fentanyl CADD 100 ML ONE ×2 (06:09→21:26)
[2021-02-04] MEDS: Fentanyl CADD 100 ML IV SCH ×2 (06:14→21:32)
[2021-02-04] MEDS: Mometasone 200 MCG/Formoterol 5 MCG 120 PUFF INHALER INH SCH ×2 (07:49→18:30)
[2021-02-04 07:59] LABS: Actual Bicarbonate (HCO3a) 34.4 mEq/L (22-28); Base Excess (BEa) 9.3 mEq/L (-2.0 to +3.0); Calcium, Ionized (arterial) 1.18 mmol/L (1.12-1.30); Carboxyhemoglobin (COHb) 0.9 gm% (0.0-3.0); Hemoglobin (Hb) 10.6 g/dL (12.0-16.0); O2 Tension (PaO2), arterial 61.6 mmHg (> 70.0); Potassium - ABG Lab 3.25 mmol/L (3.70-5.30); pH, Arterial 7.46 (7.35-7.45)
[2021-02-04 08:01] LABS: Puncture Site LRA
[2021-02-04] MEDS: Gabapentin 300 MG CAP PO SCH ×3 (08:09→21:07)
[2021-02-04] MEDS: Enoxaparin Sodium 40 MG/0.4 ML SYRINGE SC SCH ×2 (08:09→21:06)
[2021-02-04] MEDS: Dexamethasone 4 mg/ml Vial SLOW IVP SCH ×2 (08:09→21:06)
[2021-02-04] MEDS: Metoclopramide 10 MG/10 ML UDCUP PO SCH ×4 (08:09→21:06)
[2021-02-04] MEDS: Pantoprazole 40 MG GRANULES PACKET PER TUBE SCH (08:09)
[2021-02-04] MEDS: Senokot S 8.6-50 MG TAB PO SCH ×2 (08:10→21:10)
[2021-02-04] MEDS: Colchicine 0.6 MG TAB PO SCH ×2 (08:16→21:05)
[2021-02-04] MEDS: Sodium Chloride 0.9% 1,000 ML IV SCH (10:33)
[2021-02-04] MEDS: Latanoprost 0.005% Ophth Soln 2.5 ml Bottle EA EYE SCH (21:11)
[2021-02-05] MEDS: MEROPENEM 1 GM/50 ML 1 GM in Premix Bag 1 BAG IVPB SCH ×3 (01:20→17:06)
[2021-02-05] MEDS: Albuterol 200 PUFF (6.7GM INHALER) INH SCH ×6 (02:08→21:57)
[2021-02-05 04:26] LABS: Anion Gap 11 mmol/L (10-20); BUN (Urea Nitrogen) 33 mg/dL (9.8-20.1); Calc. Creatinine Clearance 170 mL/min (70-130); Calcium 8.3 mg/dL (7.8-10.44); Carbon Dioxide 34 mmol/L (23-31); Chloride 104 mmol/L (98-107); Glucose 163 mg/dL (83-110); Potassium 3.9 mmol/L (3.5-5.1); Sodium 145 mmol/L (136-145)
[2021-02-05 04:32] LABS: Band 7 % (5-11); Hemoglobin 10.1 g/dL (12.0-16.0); Hypochromia SLIGHT = 6-15 cells (100X) (0-5/hpf); Lymphocytes 10 % (21-51); MDiff Complete? YES; Mean Corpuscular HGB CONC 31.5 g/dL (32.0-36.0); Mean Corpuscular Hemoglobin 29.1 pg (27.0-31.0); Mean Corpuscular Volume 92.2 fL (78.0-98.0); Mean Platelet Volume 9.3 fL (7.4-10.4); Monocytes 21 % (0-10); Neutrophil 62 % (42-75); Nucleated RBC 2 % (0); Platelet Count 242 thou/uL (130-400); Platelet Morphology Comment Appears Adequate; RBC Distribution Width 15.6 % (11.5-14.5); Red Blood Cell (RBC) Count 3.46 mill/uL (4.20-5.40); White Blood Cell (WBC) Count 14.1 thou/uL (4.8-10.8)
[2021-02-05] MEDS: Propofol 1,000 MG/100 ML VIAL IV PRN ×3 (05:37→18:34)
[2021-02-05] MEDS: Sodium Chloride 0.9% 1,000 ML IV SCH (05:38)
[2021-02-05] MEDS: Norepinephrine 8 MG/0.9% NS 250 ML IVPB SCH (05:38)
[2021-02-05] MEDS: Mometasone 200 MCG/Formoterol 5 MCG 120 PUFF INHALER INH SCH ×2 (07:33→18:26)
[2021-02-05 07:42] LABS: Actual Bicarbonate (HCO3a) 32.3 mEq/L (22-28); Base Excess (BEa) 6.3 mEq/L (-2.0 to +3.0); Calcium, Ionized (arterial) 1.19 mmol/L (1.12-1.30); Carboxyhemoglobin (COHb) 1.3 gm% (0.0-3.0); Hemoglobin (Hb) 11.8 g/dL (12.0-16.0); Potassium - ABG Lab 3.46 mmol/L (3.70-5.30)
[2021-02-05 07:45] LABS: Puncture Site RBA
[2021-02-05] MEDS: Metoclopramide 10 MG/10 ML UDCUP PO SCH ×4 (07:49→21:07)
[2021-02-05] MEDS: Pantoprazole 40 MG GRANULES PACKET PER TUBE SCH (08:03)
[2021-02-05] MEDS: Colchicine 0.6 MG TAB PO SCH ×2 (08:03→21:07)
[2021-02-05] MEDS: Gabapentin 300 MG CAP PO SCH ×3 (08:03→21:07)
[2021-02-05] MEDS: Enoxaparin Sodium 40 MG/0.4 ML SYRINGE SC SCH ×2 (08:03→21:06)
[2021-02-05] MEDS: Senokot S 8.6-50 MG TAB PO SCH ×2 (08:04→23:16)
[2021-02-05] MEDS: Dexamethasone 4 mg/ml Vial SLOW IVP SCH ×2 (08:04→21:07)
[2021-02-05] MEDS ORDERED: Fentanyl CADD 100 ML ONE (13:00)
[2021-02-05] MEDS: Fentanyl CADD 100 ML IV SCH (13:02)
[2021-02-05] MEDS: Latanoprost 0.005% Ophth Soln 2.5 ml Bottle EA EYE SCH (21:10)
[2021-02-06] MEDS: Sodium Chloride 0.9% 1,000 ML IV SCH ×2 (01:19→22:15)
[2021-02-06] MEDS: MEROPENEM 1 GM/50 ML 1 GM in Premix Bag 1 BAG IVPB SCH ×3 (01:19→19:13)
[2021-02-06] MEDS: Propofol 1,000 MG/100 ML VIAL IV PRN ×2 (01:56→08:03)
[2021-02-06] MEDS: Albuterol 200 PUFF (6.7GM INHALER) INH SCH ×6 (02:17→22:24)
[2021-02-06 04:57] LABS: BUN (Urea Nitrogen) 33 mg/dL (9.8-20.1); Calc. Creatinine Clearance 169 mL/min (70-130); Calcium 8.5 mg/dL (7.8-10.44); Carbon Dioxide 30 mmol/L (23-31); Chloride 105 mmol/L (98-107); Glucose 161 mg/dL (83-110); Potassium 3.9 mmol/L (3.5-5.1); Sodium 146 mmol/L (136-145)
[2021-02-06 05:01] LABS: Anion Gap 15 mmol/L (10-20)
[2021-02-06 05:08] LABS: Band 16 % (5-11); Hemoglobin 10.9 g/dL (12.0-16.0); Lymphocytes 21 % (21-51); MDiff Complete? YES; Mean Corpuscular Hemoglobin 28.4 pg (27.0-31.0); Mean Corpuscular Volume 91.8 fL (78.0-98.0); Mean Platelet Volume 9.7 fL (7.4-10.4); Metamyelocyte 1 % (0-0); Monocytes 6 % (0-10); Myelocyte 9 % (0-0); Neutrophil 47 % (42-75); Platelet Count 227 thou/uL (130-400); RBC Distribution Width 15.2 % (11.5-14.5); Red Blood Cell (RBC) Count 3.84 mill/uL (4.20-5.40); White Blood Cell (WBC) Count 13.3 thou/uL (4.8-10.8)
[2021-02-06] MEDS ORDERED: Fentanyl CADD 100 ML ONE ×2 (05:08→21:37)
[2021-02-06] MEDS: Fentanyl CADD 100 ML IV SCH ×2 (05:16→21:43)
[2021-02-06] MEDS: Mometasone 200 MCG/Formoterol 5 MCG 120 PUFF INHALER INH SCH ×2 (07:50→18:53)
[2021-02-06] MEDS: Metoclopramide 10 MG/10 ML UDCUP PO SCH ×4 (08:03→21:51)
[2021-02-06] MEDS: Gabapentin 300 MG CAP PO SCH ×3 (08:35→21:51)
[2021-02-06] MEDS: Colchicine 0.6 MG TAB PO SCH ×2 (08:35→21:52)
[2021-02-06] MEDS: Dexamethasone 4 mg/ml Vial SLOW IVP SCH ×2 (08:35→21:52)
[2021-02-06] MEDS: Pantoprazole 40 MG GRANULES PACKET PER TUBE SCH (08:35)
[2021-02-06] MEDS: Enoxaparin Sodium 40 MG/0.4 ML SYRINGE SC SCH ×2 (08:36→21:51)
[2021-02-06] MEDS: Senokot S 8.6-50 MG TAB PO SCH ×2 (08:37→22:30)
[2021-02-06] MEDS: Latanoprost 0.005% Ophth Soln 2.5 ml Bottle EA EYE SCH (21:54)
[2021-02-07] MEDS: MEROPENEM 1 GM/50 ML 1 GM in Premix Bag 1 BAG IVPB SCH ×3 (01:24→17:22)
[2021-02-07] MEDS: Propofol 1,000 MG/100 ML VIAL IV PRN ×3 (01:42→21:21)
[2021-02-07] MEDS: Albuterol 200 PUFF (6.7GM INHALER) INH SCH ×6 (02:35→22:31)
[2021-02-07 05:18] LABS: Anion Gap 11 mmol/L (10-20); BUN (Urea Nitrogen) 32 mg/dL (9.8-20.1); Calc. Creatinine Clearance 171 mL/min (70-130); Calcium 8.3 mg/dL (7.8-10.44); Carbon Dioxide 34 mmol/L (23-31); Chloride 104 mmol/L (98-107); Glucose 143 mg/dL (83-110); Potassium 3.8 mmol/L (3.5-5.1); Sodium 145 mmol/L (136-145)
[2021-02-07 06:10] LABS: Hemoglobin 9.8 g/dL (12.0-16.0); MDiff Complete? YES; Mean Corpuscular HGB CONC 30.8 g/dL (32.0-36.0); Mean Corpuscular Hemoglobin 28.5 pg (27.0-31.0); Mean Corpuscular Volume 92.4 fL (78.0-98.0); Mean Platelet Volume 9.5 fL (7.4-10.4); Platelet Count 228 thou/uL (130-400); RBC Distribution Width 15.7 % (11.5-14.5); Red Blood Cell (RBC) Count 3.44 mill/uL (4.20-5.40); White Blood Cell (WBC) Count 14.9 thou/uL (4.8-10.8)
[2021-02-07 06:11] LABS: Band 18 % (5-11); Eosinophils 2 % (0-10); Lymphocytes 7 % (21-51); Metamyelocyte 2 % (0-0); Monocytes 4 % (0-10); Myelocyte 7 % (0-0); Neutrophil 60 % (42-75)
[2021-02-07] MEDS: Mometasone 200 MCG/Formoterol 5 MCG 120 PUFF INHALER INH SCH ×2 (07:36→19:04)
[2021-02-07 07:45] LABS: Base Excess (BEa) 9.8 mEq/L (-2.0 to +3.0); CO2 Tension 58.3 mmHg (35.0-45.0); Calcium, Ionized (arterial) 1.17 mmol/L (1.12-1.30); Hemoglobin (Hb) 9.7 g/dL (12.0-16.0); pH, Arterial 7.41 (7.35-7.45)
[2021-02-07] MEDS: Metoclopramide 10 MG/10 ML UDCUP PO SCH ×4 (08:10→21:21)
[2021-02-07] MEDS: Dexamethasone 4 mg/ml Vial SLOW IVP SCH ×2 (08:13→21:22)
[2021-02-07] MEDS: Enoxaparin Sodium 40 MG/0.4 ML SYRINGE SC SCH ×2 (08:14→21:21)
[2021-02-07] MEDS: Gabapentin 300 MG CAP PO SCH ×3 (08:14→21:22)
[2021-02-07] MEDS: Pantoprazole 40 MG GRANULES PACKET PER TUBE SCH (08:14)
[2021-02-07] MEDS: Senokot S 8.6-50 MG TAB PO SCH ×2 (08:15→23:06)
[2021-02-07 08:18] LABS: O2 Tension (PaO2), arterial 56.5 mmHg (> 70.0)
[2021-02-07 08:19] LABS: ALV-art Gradient 334.075 mmHg (0-20); Puncture Site LRA
[2021-02-07] MEDS: Colchicine 0.6 MG TAB PO SCH ×2 (08:20→21:21)
[2021-02-07] MEDS ORDERED: Fentanyl CADD 100 ML ONE (13:52)
[2021-02-07] MEDS: Fentanyl CADD 100 ML IV SCH (13:56)
[2021-02-07] MEDS: Sodium Chloride 0.9% 1,000 ML IV SCH (17:22)
[2021-02-07] MEDS: Latanoprost 0.005% Ophth Soln 2.5 ml Bottle EA EYE SCH (21:23)
[2021-02-08] MEDS: MEROPENEM 1 GM/50 ML 1 GM in Premix Bag 1 BAG IVPB SCH (00:20)
[2021-02-08] MEDS: Albuterol 200 PUFF (6.7GM INHALER) INH SCH ×6 (03:43→22:53)
[2021-02-08 04:55] LABS: #Eosinphils 0.1 thou/uL (0.0-0.7); #Lymphocytes 1.2 thou/uL (1.20-3.40); #Monocytes 0.3 thou/uL (0.11-0.59); #Neutrophils 5.2 thou/uL (1.40-6.50); %Basophils 0.1 % (0.0-1.0); %Eosinophils 1.4 % (0.0-10.0); %Lymphocytes 17.6 % (21.0-51.0); %Monocytes 3.8 % (0.0-10.0); %Neutrophils 77.1 % (42.0-75.0); Hemoglobin 10.1 g/dL (12.0-16.0); Mean Corpuscular HGB CONC 31.1 g/dL (32.0-36.0); Mean Corpuscular Hemoglobin 30.5 pg (27.0-31.0); Mean Corpuscular Volume 98.2 fL (78.0-98.0); Mean Platelet Volume 7.9 fL (7.4-10.4); Platelet Count 260 thou/uL (130-400); RBC Distribution Width 14.1 % (11.5-14.5); Red Blood Cell (RBC) Count 3.32 mill/uL (4.20-5.40); White Blood Cell (WBC) Count 6.7 thou/uL (4.8-10.8)
[2021-02-08 05:26] LABS: Anion Gap 8 mmol/L (10-20); BUN (Urea Nitrogen) 25 mg/dL (9.8-20.1); Calc. Creatinine Clearance 127 mL/min (70-130); Calcium 10.4 mg/dL (7.8-10.44); Carbon Dioxide 32 mmol/L (23-31); Chloride 104 mmol/L (98-107); Glucose 143 mg/dL (83-110); Potassium 3.6 mmol/L (3.5-5.1); Sodium 140 mmol/L (136-145)
[2021-02-08] MEDS ORDERED: Fentanyl CADD 100 ML ONE ×2 (05:49→22:46)
[2021-02-08] MEDS: Fentanyl CADD 100 ML IV SCH ×2 (05:54→22:50)
[2021-02-08] MEDS: Propofol 1,000 MG/100 ML VIAL IV PRN ×2 (06:37→16:53)
[2021-02-08] MEDS: Mometasone 200 MCG/Formoterol 5 MCG 120 PUFF INHALER INH SCH ×2 (07:42→18:59)
[2021-02-08 08:03] LABS: Actual Bicarbonate (HCO3a) 37.2 mEq/L (22-28); Base Excess (BEa) 11.3 mEq/L (-2.0 to +3.0); CO2 Tension 56.7 mmHg (35.0-45.0); Calcium, Ionized (arterial) 1.19 mmol/L (1.12-1.30); Carboxyhemoglobin (COHb) 1.3 gm% (0.0-3.0); Hemoglobin (Hb) 10.3 g/dL (12.0-16.0); Potassium - ABG Lab 3.34 mmol/L (3.70-5.30); pH, Arterial 7.44 (7.35-7.45)
[2021-02-08] MEDS: Metoclopramide 10 MG/10 ML UDCUP PO SCH ×4 (08:13→21:38)
[2021-02-08] MEDS: Colchicine 0.6 MG TAB PO SCH ×2 (08:14→21:39)
[2021-02-08] MEDS: Gabapentin 300 MG CAP PO SCH ×3 (08:14→21:38)
[2021-02-08] MEDS: Enoxaparin Sodium 40 MG/0.4 ML SYRINGE SC SCH ×2 (08:14→21:38)
[2021-02-08] MEDS: Senokot S 8.6-50 MG TAB PO SCH ×2 (08:15→21:40)
[2021-02-08] MEDS: Pantoprazole 40 MG GRANULES PACKET PER TUBE SCH (08:15)
[2021-02-08] MEDS: Dexamethasone 4 mg/ml Vial SLOW IVP SCH ×2 (08:15→21:39)
[2021-02-08 08:33] LABS: ALV-art Gradient 335.775 mmHg (0-20); O2 Tension (PaO2), arterial 56.8 mmHg (> 70.0); Puncture Site RRA
[2021-02-08] MEDS: Sodium Chloride 0.9% 1,000 ML IV SCH (14:26)
[2021-02-08] MEDS: Latanoprost 0.005% Ophth Soln 2.5 ml Bottle EA EYE SCH (21:37)
[2021-02-09] MEDS: Propofol 1,000 MG/100 ML VIAL IV PRN ×3 (01:39→17:54)
[2021-02-09] MEDS: Albuterol 200 PUFF (6.7GM INHALER) INH SCH ×6 (02:01→22:59)
[2021-02-09] MEDS: Mometasone 200 MCG/Formoterol 5 MCG 120 PUFF INHALER INH SCH ×2 (06:46→18:45)
[2021-02-09 07:19] LABS: Base Excess (BEa) 12.3 mEq/L (-2.0 to +3.0); CO2 Tension 55.1 mmHg (35.0-45.0); Calcium, Ionized (arterial) 1.16 mmol/L (1.12-1.30); Carboxyhemoglobin (COHb) 1.5 gm% (0.0-3.0); Hemoglobin (Hb) 10.3 g/dL (12.0-16.0); Potassium - ABG Lab 3.25 mmol/L (3.70-5.30); pH, Arterial 7.46 (7.35-7.45)
[2021-02-09 07:35] LABS: Hemoglobin 9.9 g/dL (12.0-16.0); Mean Corpuscular HGB CONC 31.7 g/dL (32.0-36.0); Mean Corpuscular Hemoglobin 29.1 pg (27.0-31.0); Mean Corpuscular Volume 91.9 fL (78.0-98.0); Mean Platelet Volume 9.2 fL (7.4-10.4); Platelet Count 211 thou/uL (130-400); RBC Distribution Width 15.4 % (11.5-14.5); Red Blood Cell (RBC) Count 3.41 mill/uL (4.20-5.40); White Blood Cell (WBC) Count 14.5 thou/uL (4.8-10.8)
[2021-02-09 07:45] LABS: ALV-art Gradient 338.375 mmHg (0-20); O2 Tension (PaO2), arterial 56.2 mmHg (> 70.0); Puncture Site RRA
[2021-02-09 07:56] LABS: Anion Gap 9 mmol/L (10-20); Carbon Dioxide 37 mmol/L (23-31); Chloride 103 mmol/L (98-107); Potassium 3.4 mmol/L (3.5-5.1); Sodium 146 mmol/L (136-145)
[2021-02-09 08:03] LABS: BUN (Urea Nitrogen) 27 mg/dL (9.8-20.1); Calc. Creatinine Clearance 166 mL/min (70-130); Calcium 8.5 mg/dL (7.8-10.44); Glucose 132 mg/dL (83-110)
[2021-02-09 08:17] LABS: Band 15 % (5-11); Lymphocytes 14 % (21-51); MDiff Complete? YES; Metamyelocyte 2 % (0-0); Monocytes 9 % (0-10); Myelocyte 2 % (0-0); Neutrophil 55 % (42-75); Nucleated RBC 5 % (0); Platelet Morphology Comment Appears Adequate; Polychromasia SLIGHT = 2-3 cells (100X) (0-2/hpf); Reactive Lymphocytes 3 % (0-10)
[2021-02-09] MEDS ORDERED: Potassium Chloride 40 MEQ in Sodium Chloride 0.9% 250 ML 250 ML IVPB SCH (08:45)
[2021-02-09] MEDS: Metoclopramide 10 MG/10 ML UDCUP PO SCH ×4 (09:16→21:20)
[2021-02-09] MEDS: Senokot S 8.6-50 MG TAB PO SCH ×2 (09:17→21:20)
[2021-02-09] MEDS: Dexamethasone 4 mg/ml Vial SLOW IVP SCH ×2 (09:17→21:18)
[2021-02-09] MEDS: Colchicine 0.6 MG TAB PO SCH ×2 (09:17→21:19)
[2021-02-09] MEDS: Gabapentin 300 MG CAP PO SCH ×3 (09:17→21:20)
[2021-02-09] MEDS: Pantoprazole 40 MG GRANULES PACKET PER TUBE SCH (09:17)
[2021-02-09] MEDS: Sodium Chloride 0.9% 1,000 ML IV SCH (09:18)
[2021-02-09] MEDS: Enoxaparin Sodium 40 MG/0.4 ML SYRINGE SC SCH ×2 (09:18→21:18)
[2021-02-09] MEDS ORDERED: Meropenem 1 GM in Sodium Chloride 0.9% 100 ML IVPB SCH (14:00)
[2021-02-09] MEDS: MEROPENEM 1 GM/50 ML 1 GM in Premix Bag 1 BAG IVPB SCH (16:08)
[2021-02-09 18:04] LABS: Potassium 4.2 mmol/L (3.5-5.1)
[2021-02-09] MEDS ORDERED: Fentanyl CADD 100 ML ONE (19:20)
[2021-02-09] MEDS: Fentanyl CADD 100 ML IV SCH (19:24)
[2021-02-09] MEDS: Latanoprost 0.005% Ophth Soln 2.5 ml Bottle EA EYE SCH (21:20)
[2021-02-10] MEDS: MEROPENEM 1 GM/50 ML 1 GM in Premix Bag 1 BAG IVPB SCH ×3 (00:13→18:13)
[2021-02-10] MEDS: Propofol 1,000 MG/100 ML VIAL IV PRN ×3 (03:35→21:34)
[2021-02-10] MEDS: Sodium Chloride 0.9% 1,000 ML IV SCH ×2 (04:12→05:26)
[2021-02-10 04:20] LABS: Mean Corpuscular HGB CONC 30.7 g/dL (32.0-36.0); Mean Corpuscular Hemoglobin 28.4 pg (27.0-31.0); Mean Corpuscular Volume 92.7 fL (78.0-98.0); Mean Platelet Volume 9.1 fL (7.4-10.4); Platelet Count 204 thou/uL (130-400); RBC Distribution Width 16.1 % (11.5-14.5); Red Blood Cell (RBC) Count 3.52 mill/uL (4.20-5.40); White Blood Cell (WBC) Count 17.1 thou/uL (4.8-10.8)
[2021-02-10 04:30] LABS: BUN (Urea Nitrogen) 30 mg/dL (9.8-20.1); Calc. Creatinine Clearance 166 mL/min (70-130); Calcium 8.5 mg/dL (7.8-10.44); Glucose 150 mg/dL (83-110)
[2021-02-10 04:39] LABS: Anion Gap 14 mmol/L (10-20); Carbon Dioxide 34 mmol/L (23-31); Chloride 102 mmol/L (98-107); Potassium 3.8 mmol/L (3.5-5.1); Sodium 146 mmol/L (136-145)
[2021-02-10 05:43] LABS: Band 26 % (5-11); Lymphocytes 3 % (21-51); MDiff Complete? YES; Monocytes 3 % (0-10); Neutrophil 68 % (42-75)
[2021-02-10] MEDS: Albuterol 200 PUFF (6.7GM INHALER) INH SCH ×6 (07:58→22:34)
[2021-02-10] MEDS: Mometasone 200 MCG/Formoterol 5 MCG 120 PUFF INHALER INH SCH ×2 (07:58→19:24)
[2021-02-10 08:05] LABS: Actual Bicarbonate (HCO3a) 33.8 mEq/L (22-28); CO2 Tension 56.5 mmHg (35.0-45.0); Calcium, Ionized (arterial) 1.21 mmol/L (1.12-1.30); Carboxyhemoglobin (COHb) 2.1 gm% (0.0-3.0); O2 Tension (PaO2), arterial 90.3 mmHg (> 70.0); Potassium - ABG Lab 3.63 mmol/L (3.70-5.30)
[2021-02-10 08:06] LABS: ALV-art Gradient 302.525 mmHg (0-20); Puncture Site RRA
[2021-02-10] MEDS: Metoclopramide 10 MG/10 ML UDCUP PO SCH ×4 (09:01→21:34)
[2021-02-10] MEDS: Gabapentin 300 MG CAP PO SCH ×3 (09:02→21:34)
[2021-02-10] MEDS: Colchicine 0.6 MG TAB PO SCH ×2 (09:02→21:34)
[2021-02-10] MEDS: Pantoprazole 40 MG GRANULES PACKET PER TUBE SCH (09:03)
[2021-02-10] MEDS: Enoxaparin Sodium 40 MG/0.4 ML SYRINGE SC SCH ×2 (09:03→21:35)
[2021-02-10] MEDS: Senokot S 8.6-50 MG TAB PO SCH ×2 (09:04→21:34)
[2021-02-10] MEDS: Dexamethasone 4 mg/ml Vial SLOW IVP SCH (09:07)
[2021-02-10] MEDS ORDERED: Fentanyl CADD 100 ML ONE (15:30)
[2021-02-10] MEDS: Fentanyl CADD 100 ML IV SCH (15:37)
[2021-02-10] MEDS: Latanoprost 0.005% Ophth Soln 2.5 ml Bottle EA EYE SCH (21:44)
[2021-02-10] MEDS: Norepinephrine 8 MG/0.9% NS 250 ML IVPB SCH (22:45)
[2021-02-11] MEDS: MEROPENEM 1 GM/50 ML 1 GM in Premix Bag 1 BAG IVPB SCH ×3 (01:06→16:15)
[2021-02-11] MEDS: Sodium Chloride 0.9% 1,000 ML IV SCH ×2 (01:24→21:40)
[2021-02-11] MEDS: Lorazepam 2 MG/ML VIAL SLOW IVP PRN (03:01)
[2021-02-11] MEDS: Albuterol 200 PUFF (6.7GM INHALER) INH SCH ×6 (03:23→22:24)
[2021-02-11 04:44] LABS: Anion Gap 11 mmol/L (10-20); BUN (Urea Nitrogen) 26 mg/dL (9.8-20.1); Calc. Creatinine Clearance 166 mL/min (70-130); Calcium 7.7 mg/dL (7.8-10.44); Carbon Dioxide 35 mmol/L (23-31); Chloride 106 mmol/L (98-107); Glucose 101 mg/dL (83-110); Potassium 3.5 mmol/L (3.5-5.1); Sodium 148 mmol/L (136-145)
[2021-02-11 04:47] LABS: #Eosinphils 0.1 thou/uL (0.0-0.7); #Lymphocytes 1.3 thou/uL (1.20-3.40); #Monocytes 0.9 thou/uL (0.11-0.59); #Neutrophils 11.9 thou/uL (1.40-6.50); %Basophils 0.1 % (0.0-1.0); %Eosinophils 0.6 % (0.0-10.0); %Lymphocytes 9.4 % (21.0-51.0); %Monocytes 6.1 % (0.0-10.0); %Neutrophils 83.8 % (42.0-75.0); Hemoglobin 8.9 g/dL (12.0-16.0); Mean Corpuscular HGB CONC 31.5 g/dL (32.0-36.0); Mean Corpuscular Hemoglobin 29.2 pg (27.0-31.0); Mean Corpuscular Volume 92.4 fL (78.0-98.0); Platelet Count 144 thou/uL (130-400); RBC Distribution Width 16.6 % (11.5-14.5); Red Blood Cell (RBC) Count 3.04 mill/uL (4.20-5.40); White Blood Cell (WBC) Count 14.2 thou/uL (4.8-10.8)
[2021-02-11] MEDS ORDERED: Potassium Chloride 40 MEQ in Sodium Chloride 0.9% 250 ML 250 ML IVPB SCH (06:00)
[2021-02-11 07:41] LABS: Actual Bicarbonate (HCO3a) 34.9 mEq/L (22-28); Base Excess (BEa) 9.3 mEq/L (-2.0 to +3.0); CO2 Tension 53.9 mmHg (35.0-45.0); Calcium, Ionized (arterial) 1.17 mmol/L (1.12-1.30); Carboxyhemoglobin (COHb) 1.4 gm% (0.0-3.0); Hemoglobin (Hb) 9.8 g/dL (12.0-16.0); Potassium - ABG Lab 4.09 mmol/L (3.70-5.30); pH, Arterial 7.43 (7.35-7.45)
[2021-02-11] MEDS: Mometasone 200 MCG/Formoterol 5 MCG 120 PUFF INHALER INH SCH ×2 (07:44→18:48)
[2021-02-11 07:55] LABS: O2 Tension (PaO2), arterial 53.9 mmHg (> 70.0); Puncture Site LRA
[2021-02-11 07:56] LABS: ALV-art Gradient 306.525 mmHg (0-20)
[2021-02-11] MEDS: Propofol 1,000 MG/100 ML VIAL IV PRN ×2 (08:51→21:30)
[2021-02-11] MEDS: Dexamethasone 4 mg/ml Vial SLOW IVP SCH (08:52)
[2021-02-11] MEDS: Metoclopramide 10 MG/10 ML UDCUP PO SCH (08:52)
[2021-02-11] MEDS: Enoxaparin Sodium 40 MG/0.4 ML SYRINGE SC SCH ×2 (08:53→20:45)
[2021-02-11] MEDS: Senokot S 8.6-50 MG TAB PO SCH ×2 (08:53→20:45)
[2021-02-11] MEDS: Gabapentin 300 MG CAP PO SCH ×3 (08:53→20:45)
[2021-02-11] MEDS: Pantoprazole 40 MG GRANULES PACKET PER TUBE SCH (08:53)
[2021-02-11] MEDS: Colchicine 0.6 MG TAB PO SCH ×2 (08:56→20:45)
[2021-02-11] MEDS ORDERED: Fentanyl CADD 100 ML ONE (10:46)
[2021-02-11] MEDS: Fentanyl CADD 100 ML IV SCH (10:48)
[2021-02-11 14:50] VITALS: BMI 35.2
[2021-02-11] MEDS: Latanoprost 0.005% Ophth Soln 2.5 ml Bottle EA EYE SCH (20:50)
[2021-02-12] MEDS: MEROPENEM 1 GM/50 ML 1 GM in Premix Bag 1 BAG IVPB SCH ×3 (01:14→19:57)
[2021-02-12] MEDS: Albuterol 200 PUFF (6.7GM INHALER) INH SCH ×6 (02:22→22:33)
[2021-02-12 03:42] LABS: #Eosinphils 0.1 thou/uL (0.0-0.7); #Lymphocytes 2.1 thou/uL (1.20-3.40); #Monocytes 0.9 thou/uL (0.11-0.59); #Neutrophils 10.7 thou/uL (1.40-6.50); %Basophils 0.1 % (0.0-1.0); %Eosinophils 0.6 % (0.0-10.0); %Lymphocytes 15.1 % (21.0-51.0); %Monocytes 6.8 % (0.0-10.0); %Neutrophils 77.5 % (42.0-75.0); Hemoglobin 8.1 g/dL (12.0-16.0); Mean Corpuscular HGB CONC 30.5 g/dL (32.0-36.0); Mean Corpuscular Hemoglobin 28.7 pg (27.0-31.0); Mean Corpuscular Volume 94.1 fL (78.0-98.0); Mean Platelet Volume 9.6 fL (7.4-10.4); Platelet Count 130 thou/uL (130-400); RBC Distribution Width 17.2 % (11.5-14.5); White Blood Cell (WBC) Count 13.8 thou/uL (4.8-10.8)
[2021-02-12 04:05] LABS: Anion Gap 8 mmol/L (10-20); BUN (Urea Nitrogen) 32 mg/dL (9.8-20.1); Calc. Creatinine Clearance 167 mL/min (70-130); Calcium 8.5 mg/dL (7.8-10.44); Carbon Dioxide 37 mmol/L (23-31); Chloride 105 mmol/L (98-107); Glucose 91 mg/dL (83-110); Potassium 4.2 mmol/L (3.5-5.1); Sodium 146 mmol/L (136-145)
[2021-02-12] MEDS ORDERED: Fentanyl CADD 100 ML ONE (06:36)
[2021-02-12] MEDS: Fentanyl CADD 100 ML IV SCH (06:39)
[2021-02-12] MEDS: Mometasone 200 MCG/Formoterol 5 MCG 120 PUFF INHALER INH SCH ×2 (07:46→18:56)
[2021-02-12 08:11] LABS: Actual Bicarbonate (HCO3a) 34.1 mEq/L (22-28); Base Excess (BEa) 8.9 mEq/L (-2.0 to +3.0); CO2 Tension 51.5 mmHg (35.0-45.0); Calcium, Ionized (arterial) 1.16 mmol/L (1.12-1.30); Carboxyhemoglobin (COHb) 1.7 gm% (0.0-3.0); Hemoglobin (Hb) 8.6 g/dL (12.0-16.0); O2 Tension (PaO2), arterial 68.1 mmHg (> 70.0); Potassium - ABG Lab 3.68 mmol/L (3.70-5.30); pH, Arterial 7.44 (7.35-7.45)
[2021-02-12 08:26] LABS: Puncture Site RRA
[2021-02-12 08:27] LABS: ALV-art Gradient 509.225 mmHg (0-20)
[2021-02-12] MEDS: Colchicine 0.6 MG TAB PO SCH ×2 (09:08→22:40)
[2021-02-12] MEDS: Dexamethasone 4 mg/ml Vial SLOW IVP SCH (09:08)
[2021-02-12] MEDS: Gabapentin 300 MG CAP PO SCH ×3 (09:09→22:40)
[2021-02-12] MEDS: Enoxaparin Sodium 40 MG/0.4 ML SYRINGE SC SCH ×2 (09:09→22:40)
[2021-02-12] MEDS: Pantoprazole 40 MG GRANULES PACKET PER TUBE SCH (09:10)
[2021-02-12] MEDS: Senokot S 8.6-50 MG TAB PO SCH ×2 (09:10→22:40)
[2021-02-12] MEDS: Propofol 1,000 MG/100 ML VIAL IV PRN (10:07)
[2021-02-12 10:41] VITALS: TEMP 98.8
[2021-02-12 14:25] VITALS: BP 152/90
[2021-02-12] MEDS: Lorazepam 2 MG/ML VIAL SLOW IVP PRN (16:00)
[2021-02-12] MEDS: Sodium Chloride 0.9% 1,000 ML IV SCH (19:57)
[2021-02-12] MEDS: Latanoprost 0.005% Ophth Soln 2.5 ml Bottle EA EYE SCH (22:40)
== END 2021-02-12 16:24 | disposition expired | DRG 207 ==
LOC: ERS 13:02 → ERHOLD 16:32 → CCU 19:57 → IMCU/EMU 01-13 21:39 → CCU 01-31 09:24
PROVIDERS: ADMIT Internal Medicine; ATTEND Internal Medicine
PROC: 3E0333Z Introduction of Anti-inflammatory into Peripheral Vein, Percutaneous Approach (ICD-10-PCS; 2021-01-07)
PROC: 8E0ZXY6 Isolation (ICD-10-PCS; 2021-01-07)
PROC: 5A0955A Assistance with Respiratory Ventilation, Greater than 96 Consecutive Hours, High Flow/Velocity Cannula (ICD-10-PCS; 2021-01-13)
PROC: 0DH67UZ Insertion of Feeding Device into Stomach, Via Natural or Artificial Opening (ICD-10-PCS; 2021-01-26)
PROC: 3E0G76Z Introduction of Nutritional Substance into Upper GI, Via Natural or Artificial Opening (ICD-10-PCS; 2021-01-26)
PROC: 5A1955Z Respiratory Ventilation, Greater than 96 Consecutive Hours (ICD-10-PCS; principal; 2021-01-27)
PROC: 3E033XZ Introduction of Vasopressor into Peripheral Vein, Percutaneous Approach (ICD-10-PCS; 2021-01-27)
PROC: 0BH18EZ Insertion of Endotracheal Airway into Trachea, Via Natural or Artificial Opening Endoscopic (ICD-10-PCS; 2021-01-27)
PROC: 0W9930Z Drainage of Right Pleural Cavity with Drainage Device, Percutaneous Approach (ICD-10-PCS; 2021-02-03)
PROC: 0W9B00Z Drainage of Left Pleural Cavity with Drainage Device, Open Approach (ICD-10-PCS; 2021-02-09)
PROC: 0W9900Z Drainage of Right Pleural Cavity with Drainage Device, Open Approach (ICD-10-PCS; 2021-02-09)
DX: U07.1 COVID-19 (principal); J12.82 Pneumonia due to coronavirus disease 2019; J80 Acute respiratory distress syndrome; G93.41 Metabolic encephalopathy; J93.83 Other pneumothorax; J93.82 Other air leak; Z66 Do not resuscitate; Z51.5 Encounter for palliative care; I10 Essential (primary) hypertension; J45.909 Unspecified asthma, uncomplicated; K21.9 Gastro-esophageal reflux disease without esophagitis; M19.90 Unspecified osteoarthritis, unspecified site; F41.9 Anxiety disorder, unspecified; J98.2 Interstitial emphysema; E66.9 Obesity, unspecified; H40.9 Unspecified glaucoma; G89.29 Other chronic pain; E87.6 Hypokalemia; G62.9 Polyneuropathy, unspecified; R79.89 Other specified abnormal findings of blood chemistry; K59.03 Drug induced constipation; T40.2X5A Adverse effect of other opioids, initial encounter; Z78.1 Physical restraint status; Z28.21 Immunization not carried out because of patient refusal; Z68.33 Body mass index [BMI] 33.0-33.9, adult; Z88.0 Allergy status to penicillin; Z79.899 Other long term (current) drug therapy; Z79.51 Long term (current) use of inhaled steroids; Z98.890 Other specified postprocedural states; Z88.2 Allergy status to sulfonamides; I95.9 Hypotension, unspecified; L27.0 Generalized skin eruption due to drugs and medicaments taken internally; T36.1X5A Adverse effect of cephalosporins and other beta-lactam antibiotics, initial encounter; Y92.230 Patient room in hospital as the place of occurrence of the external cause
CPT/HCPCS: 36415; 36416; 36600; 71045; 71275; 80048; 80053; 81001; 82728; 82805; 83605; 83735; 83880; 84100; 84484; 85025; 85379; 85652; 86140; 93005; 94002; 94003; 94640; 96374; J0692; J1100; J1200; J1650; J1720; J1940; J2001; J2060; J2185; J2270; J2704; J2765; J2920; J3010; J3480; J3490; J7050; J7120; J7620; J8540; P9045; S0028